=== PATIENT | female | born 1985 | race Caucasian/White ===

== ENCOUNTER 2017-09-09 12:11 | Inpatient (IN) | payer OTHER ==
[2017-09-09 12:21] VITALS: BMI 41.5
--- NOTE | 2017-09-09 12:58 | PDOC ---
History of Present Illness - General Chief Complaint: Vomiting/Diarrhea Stated Complaint: COLD SYMPTOMS Time Seen by Provider: 09/09/17 12:27 History Source: Patient Exam Limitations: No Limitations - History of Present Illness Initial Comments: CHIEF COMPLAINT: HISTORY OF PRESENT ILLNESS: Vital signs on arrival are notable for pulse of 106. REVIEW OF SYSTEMS: GENERAL/CONSTITUTIONAL: Subjective fever/chills. No weakness. No weight change. HEAD, EYES, EARS, NOSE AND THROAT: No change in vision. No ear pain or discharge. No sore throat. CARDIOVASCULAR: No chest pain or shortness of breath. RESPIRATORY: No cough, wheezing, or hemoptysis. GASTROINTESTINAL: See history of present illness. GENITOURINARY: No dysuria, frequency, or change in urination. MUSCULOSKELETAL: No joint or muscle swelling or pain. No neck or back pain. SKIN: No rash or easy bruising. NEUROLOGIC: No headache, vertigo, loss of consciousness, or loss of sensation. PHYSICAL EXAM: GENERAL: The patient is awake, alert, and fully oriented, in no acute distress. HEAD: Normal with no signs of trauma. ENT: Pupils equal, round and reactive to light, extraocular movements intact, sclera anicteric, conjunctiva clear. Neck supple. LUNGS: Clear to auscultation bilaterally. Normal excursion. No respiratory distress or use of accessory muscles. CV: RRR, S1/S2, no MRG. Cap refill < 2 sec. ABDOMEN: Soft, non-distended, non-tender even to deep palpation, no hepatomegaly or splenomegaly, no masses. EXTREMITIES: Normal range of motion, no edema. NEUROLOGICAL: Normal speech, normal gait. CN II-XII grossly intact. SKIN: Warm, dry, normal turgor, no rashes or lesions noted. Past History - Past Medical History Allergies/Adverse Reactions: Allergies Allergy/AdvReac Type Severity Reaction Status Date / Time cephalexin monohydrate Allergy Mild Rash Verified 03/20/15 17:33 [From Keflex] Penicillins Allergy Mild Rash Verified 03/20/15 17:33 Home Medications: Ambulatory Orders NK [No Known Home Medication] 09/09/17 Anemia: Yes Asthma: No Cancer: No Cardiac Disorders: No CVA: No COPD: No CHF: No DVT: No Dementia: No Diabetes: No GI Disorders: No Disorders: No HTN: No Hypercholesterolemia: No Liver Disease: No Seizures: No Thyroid Disease: No - Surgical History Abdominal Surgery: No Appendectomy: No Cardiac Surgery: No Cholecystectomy: No Lung Surgery: No Neurologic Surgery: No Orthopedic Surgery: No - Reproductive History (#): 0 Para: 0 Cervical CA: No Dysfunctional Uterine Bleeding: No Ectopic : No Endometrial CA: No Polycystic Ovaries: Yes Therapeutic (s) & number: No Tubal Ligation: No Spontaneous : 0 - Suicide/Smoking/Psychosocial Hx Smoking Status: Yes Smoking History: Never smoked Have you smoked in the past 12 months: Yes Number of Cigarettes Smoked Daily: 2 If you are a former smoker, when did you quit?: 2WKS Cigars Per Day: 0 Information on smoking cessation initiated: No 'Breaking Loose' booklet given: 03/20/15 Hx Alcohol Use: No Drug/Substance Use Hx: No Substance Use Type: None Hx Substance Use Treatment: No *Physical Exam - Vital Signs Last Vital Signs Temp Pulse Resp BP Pulse Ox 99.5 F 106 H 20 121/67 97 09/09/17 12:18 09/09/17 12:18 09/09/17 12:18 09/09/17 12:18 09/09/17 12:18 Medical Decision Making - Medical Decision Making A/P:
[2017-09-09] MEDS ORDERED: ACETAMINOPHEN 1000 MG/100 ML VIAL (NON FORMULARY) IVPB ONE (14:09)
[2017-09-09] MEDS ORDERED: ACETAMINOPHEN INJECTION 100 ML IVPB ONE (14:18)
[2017-09-09 14:21] LABS: BASO % 0.5 % (0-2.0); EOS % 0.1 % (0-4.5); HEMATOCRIT 37.7 % (32.4-45.2); MCHC 34.3 g/dl (32.0-36.0); MEAN CELL VOLUME 78.6 fl (80-96); MEAN PLT VOLUME 7.9 fl (7.5-11.1); MONO % 5.4 % (3.8-10.2); PLATELET COUNT 223 K/MM3 (134-434); RDW 15.4 % (11.6-15.6); WHITE BLOOD COUNT 10.3 K/mm3 (4.0-10.0)
[2017-09-09 14:32] LABS: URINE APPEARANCE CLEAR; URINE BILIRUBIN NEGATIVE (<2.0 mg/dL); URINE COLOR YELLOW; URINE GLUCOSE (UA) NEGATIVE (NEGATIVE); URINE KETONE NEGATIVE (NEGATIVE); URINE LEUK ESTERASE NEGATIVE (NEGATIVE); URINE NITRITE NEGATIVE (NEGATIVE); URINE PROTEIN NEGATIVE (NEGATIVE); URINE UROBILINOGEN NEGATIVE mg/dL (0.2-1.0)
[2017-09-09 14:36] LABS: EPI CELLS FEW /HPF (FEW); URINE MUCUS RARE
[2017-09-09 14:50] LABS: CHLORIDE 101 mmol/L (98-107); POTASSIUM 4.1 mmol/L (3.5-5.1); SODIUM 136 mmol/L (136-145)
[2017-09-09 14:57] LABS: ALBUMIN 3.9 g/dl (3.4-5.0); ALK PHOS 99 U/L (45-117); ANION GAP 9 (8-16); BILIRUBIN,TOTAL 0.6 mg/dL (0.2-1.0); BLOOD UREA NITROGEN 11 mg/dL (7-18); CALCIUM 8.7 mg/dL (8.5-10.1); CO2 26 mmol/L (21-32); CREATININE 0.9 mg/dL (0.55-1.02); GLUCOSE,RANDOM 103 mg/dL (74-106); LIPASE 56 U/L (73-393); SGOT/AST 24 U/L (15-37); SGPT/ALT 38 U/L (12-78)
--- NOTE | 2017-09-09 15:21 | PDOC ---
History of Present Illness - General Chief Complaint: Vomiting/Diarrhea Stated Complaint: COLD SYMPTOMS Time Seen by Provider: 09/09/17 12:27 - History of Present Illness Initial Comments: 09/09/17 15:18 31 year old with no past medical history who presents with one day of body aches , weakness, dizziness, chills/shaking, abdominal pain and nausea. She states the abdominal pain is rated 10/10 is intermittent. She also notes that she has had watery diarrhea since yesterday that is slimy but did not have blood. She reports that she felt so weak this morning that she was unable to dress herself. She took a Motrin this 0500 Am with moderate relief. She admits that she is sexually active without protection for the past 3 months. She denies chest pain, back pain, SOB, dysuria, burning or blood in urine. She has no other complaints at bedside. PMHX: none PSHX: none Meds: none Allergies: penicillin Tob: none Etoh: none Rec drugs: none Past History - Past Medical History Allergies/Adverse Reactions: Allergies Allergy/AdvReac Type Severity Reaction Status Date / Time cephalexin monohydrate Allergy Mild Rash Verified 09/12/17 00:00 [From Keflex] Penicillins Allergy Mild Rash Verified 09/12/17 00:00 Home Medications: Ambulatory Orders Oxycodone HCl/Acetaminophen [Percocet 5/325 -] 1 tab PO Q6H #40 tab MDD 5 Anemia: Yes Asthma: No Cancer: No Cardiac Disorders: No CVA: No COPD: No CHF: No DVT: No Dementia: No Diabetes: No GI Disorders: No Disorders: No HTN: No Hypercholesterolemia: No Liver Disease: No Seizures: No Thyroid Disease: No - Surgical History Abdominal Surgery: No Appendectomy: No Cardiac Surgery: No Cholecystectomy: No Lung Surgery: No Neurologic Surgery: No Orthopedic Surgery: No - Reproductive History (#): 0 Para: 0 Cervical CA: No Dysfunctional Uterine Bleeding: No Ectopic : No Endometrial CA: No Polycystic Ovaries: Yes Therapeutic (s) & number: No Tubal Ligation: No Spontaneous : 0 - Suicide/Smoking/Psychosocial Hx Smoking Status: Yes Smoking History: Former smoker Have you smoked in the past 12 months: Yes Number of Cigarettes Smoked Daily: 2 If you are a former smoker, when did you quit?: 2WKS Cigars Per Day: 0 Information on smoking cessation initiated: No 'Breaking Loose' booklet given: 03/20/15 Hx Alcohol Use: No Drug/Substance Use Hx: No Substance Use Type: None Hx Substance Use Treatment: No *Physical Exam - Vital Signs Last Vital Signs Temp Pulse Resp BP Pulse Ox 99.5 F 106 H 20 121/67 97 09/09/17 12:18 09/09/17 12:18 09/09/17 12:18 09/09/17 12:18 09/09/17 12:18 - Physical Exam Comments: 09/09/17 15:30 GENERAL: Awake, alert, and fully oriented, in no acute distress HEAD: No signs of trauma, normocephalic, atraumatic EYES: EOMI, sclera anicteric, conjunctiva clear ENT: Moist mucosa NECK: Normal ROM LUNGS: No distress, speaks full sentences, clear to auscultation bilaterally HEART: Regular rate and rhythm, normal S1 and S2, no murmurs, rubs or gallops, peripheral pulses normal and equal bilaterally. ABDOMEN: Soft, + RLQ and RUQ tenderness to palpation, normoactive bowel sounds. No guarding, no rebound. No masses EXTREMITIES : Normal inspection, Normal range of motion, no edema. No clubbing or cyanosis. NEUROLOGICAL: Normal speech, normal gait, no focal sensorimotor deficits SKIN: Warm, Dry, normal turgor, no rashes or lesions noted ED Treatment Course - LABORATORY CBC & Chemistry Diagram: 09/11/17 06:30 09/09/17 14:09 - ADDITIONAL ORDERS Additional order review: Laboratory Results 09/09/17 09/09/17 09/09/17 14:29 14:20 14:20 Sodium Potassium Chloride Carbon Dioxide Anion Gap BUN Creatinine Creat Clearance w eGFR Random Glucose Lactic Acid Calcium Total Bilirubin AST ALT Alkaline Phosphatase Total Protein Albumin Lipase Cancelled Urine Color Yellow Urine Appearance Clear Urine pH 8.0 D Ur Specific Erick 1.020 Urine Protein Negative Urine Glucose (UA) Negative Urine Ketones Negative Urine Blood 1+ H Urine Nitrite Negative Urine Bilirubin Negative Urine Urobilinogen Negative Ur Leukocyte Esterase Negative Urine WBC (Auto) 1 Urine RBC (Auto) 11 Ur Epithelial Cells Few Urine Mucus Rare Urine HCG, Qual Negative 09/09/17 09/09/17 14:09 14:09 Sodium 136 Potassium 4.1 Chloride 101 Carbon Dioxide 26 Anion Gap 9 BUN 11 Creatinine 0.9 Creat Clearance w eGFR > 60 Random Glucose 103 Lactic Acid 1.5 Calcium 8.7 Total Bilirubin 0.6 AST 24 ALT 38 Alkaline Phosphatase 99 Total Protein 8.0 Albumin 3.9 Lipase 56 L Urine Color Urine Appearance Urine pH Ur Specific Erick Urine Protein Urine Glucose (UA) Urine Ketones Urine Blood Urine Nitrite Urine Bilirubin Urine Urobilinogen Ur Leukocyte Esterase Urine WBC (Auto) Urine RBC (Auto) Ur Epithelial Cells Urine Mucus Urine HCG, Qual 09/09/17 14:20 Influenza Types A,B Antigen - Preliminary Nasopharyngeal Swab - Preliminary 09/09/17 14:09 RBC 4.80 MCV 78.6 L MCHC 34.3 RDW 15.4 MPV 7.9 Neutrophils % 82.0 Lymphocytes % 12.0 D Monocytes % 5.4 Eosinophils % 0.1 D Basophils % 0.5 - RADIOLOGY Radiology Studies Ordered: Category Date Time Status ABDOMEN & PELVIS CT W/O CONTR [CT] Stat CT Scan 09/09/17 14:45 Ordered - Medications Given in the ED: ED Medications Discontinued Medications Generic Name Dose Route Start Last Admin Trade Name Kamini PRN Reason Stop Dose Admin Acetaminophen 1,000 mg 09/09/17 14:09 09/09/17 14:28 Ofirmev Injection - IVPB 09/09/17 14:10 1,000 mg ONCE ONE Administration Medical Decision Making - Medical Decision Making 09/09/17 15:31 31 year old with no past medical history who presents with one day of body aches , weakness, dizziness, chills/shaking, abdominal pain and nausea. She states the abdominal pain is rated 10/10 is intermittent. She also notes that she has had watery diarrhea since yesterday that is slimy but did not have blood. Symptoms and history are concerning for gastroenteritis vs vs appendicitis vs UTI. - CBC, CMP, UA, Urine culture, Lipase, Upreg Labs - unremarkable Abd Ct - possible early acute appendicitis Surgery consulted. Patient agrees to appendectomy. *DC/Admit/Observation/Transfer Diagnosis at time of Disposition: Appendicitis Qualifiers: Appendicitis type: acute appendicitis Acute appendicitis type: with localized peritonitis Qualified Code(s): K35.3 - Acute appendicitis with localized peritonitis - Discharge Dispostion Condition at time of disposition: Guarded Decision to Admit order: Yes - Prescriptions - Referrals - Patient Instructions - Post Discharge Activity
--- NOTE | 2017-09-09 18:00 | PDOC ---
Attending Attestation - Resident Resident Name: JohnieDolores - ED Attending Attestation I have performed the following: I have examined & evaluated the patient, The case was reviewed & discussed with the resident, I agree w/resident's findings & plan, Exceptions are as noted - HPI HPI: 09/09/17 17:55 "The patient is a 31 year old female, with no significant PMH, who presents to the emergency department with weakness, generalized body aches, nausea without vomiting and diffuse intermittent abdominal pain beginning last night. The patient states the diffuse intermittent abdominal pain has been gradually progressive and is now 10/10 in intensity with no exacerbating or remitting factors. It is most pronounced on the R side of her abdomen. The patient states she took Motrin around 5am this morning with minimal relief. The patient also endorses a few episodes of loose stool diarrhea (non bloody) yesterday. The patient denies chest pain, shortness of breath, headache and dizziness. Denies fever, chills, vomit and constipation. Denies dysuria, frequency, urgency and hematuria. Allergies: cephalexin monohydrate, penicillins " - Physicial Exam PE: 09/09/17 17:58 "GENERAL: Awake, alert, and fully oriented, in no acute distress. HEAD: No signs of trauma EYES: PERRLA, EOMI, sclera anicteric, conjunctiva clear ENT: Auricles normal inspection, hearing grossly normal, nares patent, oropharynx clear without exudates. Moist mucosa NECK: Nontender, no stepoffs, Normal ROM, supple, no lymphadenopathy, JVD, or masses LUNGS: Breath sounds equal, clear to auscultation bilaterally. No wheezes, and no crackles HEART: Regular rate and rhythm, normal S1 and S2, no murmurs, rubs or gallops ABDOMEN: + R side abdominal tenderness, normoactive bowel sounds. No guarding, no rebound. No masses EXTREMITIES: Normal range of motion, no edema. No clubbing or cyanosis. No cords, erythema, or tenderness NEUROLOGICAL: Cranial nerves II through XII intact. 5/5 strength and sensation in all extremities, Normal speech, normal gait, normal cerebellar function SKIN: Warm, Dry, normal turgor, no rashes or lesions noted. " - Medical Decision Making 09/09/17 17:58 31 F with abdominal pain, found to be tender on R side. Likely gastroenteritis but will need to r/o appy. Pt with negative barclay's, making stephan less likely. - Labs, UA, UPT - CTAP - IVF, pain control 09/09/17 18:12 CT shows possible early appy. Dr. Arreola at bedside to evaluate. Will likely take to OR. Pt admitted to Dr. Arreola as satellite. <Ben Mcneil - Last Filed: 09/09/17 18:12> Attestations - Attestations 09/09/17 18:19 Documentation prepared by Mark Anthony Ríos, acting as medical administrator for Ben Mcneil MD. <Mark Anthony Ríos - Last Filed: 09/09/17 18:19>
--- NOTE | 2017-09-09 18:01 | HP ---
Admitting History and Physical - Admission Chief Complaint: Abdominal pain History of Present Illness: 31yo female PMH obesity s/p 3 years ago presents with one day of body aches, weakness, dizziness, chills/shaking, abdominal pain and nausea. She states the abdominal pain is rated 10/10 is intermittent. She also notes that she has had watery diarrhea since yesterday. She reports that she felt so weak this morning. She admits that she is sexually active without protection for the past 3 months. She denies chest pain, back pain, SOB, dysuria, burning or blood in urine. She has no other complaints at bedside. CT scan shows some proximal appendiceal thickening. Last meal 450P asked to stop. We were asked to assess. History Source: Patient, Medical Record Limitations to Obtaining History: No Limitations - Past Medical History ...LMP: 01/07/12 Additional Past Medical History: obesity - Past Surgical History Past Surgical History: Yes: - Smoking History Smoking history: Former smoker Have you smoked in the past 12 months: Yes Aproximately how many cigarettes per day: 2 If you are a former smoker, when did you quit?: 2WKS - Alcohol/Substance Use Hx Alcohol Use: No History of Substance Use: reports: None - Social History ADL: Independent History of Recent Travel: No Home Medications - Allergies Allergies/Adverse Reactions: Allergies Allergy/AdvReac Type Severity Reaction Status Date / Time cephalexin monohydrate Allergy Mild Rash Verified 03/20/15 17:33 [From Keflex] Penicillins Allergy Mild Rash Verified 03/20/15 17:33 - Home Medications Home Medications: Ambulatory Orders NK [No Known Home Medication] 09/09/17 Review of Systems - Review of Systems Constitutional: reports: Malaise. denies: Chills, Fever Eyes: denies: Blind Spots, Recent Change in Vision HENT: denies: Difficult Swallowing, Throat Pain Neck: denies: Swollen Glands, Tenderness Cardiovascular: denies: Chest Pain, Palpitations Respiratory: denies: Cough, SOB Gastrointestinal: reports: Abdominal Pain, Bloating, Diarrhea, Vomiting Genitourinary: denies: Flank Pain Breasts: reports: No Symptoms Reported. denies: Pain Integumentary: denies: Erythema, Incision, Lesions, Rash Neurological: denies: Seizure, Syncope Endocrine: denies: Unexplained Weight Gain, Unexplained Weight Loss Hematology/Lymphatic: denies: Easily Bruised, Excessive Bleeding Psychiatric: denies: Anxiety, Depression Physical Examination Vital Signs: Vital Signs Temperature 98.2 F 09/09/17 16:34 Pulse Rate 85 09/09/17 16:34 Respiratory Rate 18 09/09/17 16:34 Blood Pressure 118/62 09/09/17 16:34 O2 Sat by Pulse Oximetry (%) 100 09/09/17 16:34 Constitutional: Yes: Well Nourished, No Distress, Calm, Obese Eyes: Yes: Conjunctiva Clear, EOM Intact HENT: Yes: Atraumatic, Normocephalic Neck: Yes: Supple, Trachea Midline Cardiovascular: Yes: Regular Rate and Rhythm, S1, S2 Respiratory: Yes: Regular, CTA Bilaterally Gastrointestinal: Yes: Normal Bowel Sounds, Soft, Abdomen, Obese, Tenderness ( mild in the RLQ,), Tenderness, Rebound. No: Tenderness, Epigastrium ...Rectal Exam: Yes: Deferred Renal/: No: CVA Tenderness - Left, CVA Tenderness - Right Musculoskeletal: No: Muscle Pain, Muscle Weakness Extremities: Yes: Cool, Cyanosis Edema: Yes Peripheral Pulses WNL: No Peripheral Pulses: Left Radial: 2+, Right Radial: 2+, Left Doralis Pedis: 2+, Right Dorsalis Pedis: 2+ Neurological: Yes: Alert, Oriented Psychiatric: Yes: Alert, Oriented Labs: CBC, BMP 09/09/17 14:09 09/09/17 14:09 Imaging - Results Cat Scan: Report Reviewed, Image Reviewed (proximal dilation of appendix at the cecum) Problem List - Problems (1) Appendicitis Assessment/Plan: 31yo Female with acute appendicitis NPO and IVF hydration IV antibiotics Discussed with patient risks, benefits and alternatives of laparoscopic possible open appendectomy, including but not limited to bleeding, infection, injury to adjacent structures, leak or injury, intraabdominal abscess, need for further procedures, ; alternatives include antibiotics, delayed or no surgery - risks of this include failure of nonoperative therapy, perforation, sepsis, recurrence, . Patient desires to proceed with operation - will take to OR for above. Informed consent signed for same. Code(s): K37 - UNSPECIFIED APPENDICITIS Qualifiers: Appendicitis type: acute appendicitis Acute appendicitis type: with localized peritonitis Qualified Code(s): K35.3 - Acute appendicitis with localized peritonitis (2) Abdominal pain in female Code(s): R10.9 - UNSPECIFIED ABDOMINAL PAIN (3) Asthmatic bronchitis Code(s): J45.909 - UNSPECIFIED ASTHMA, UNCOMPLICATED Qualifiers: Asthma severity: unspecified severity Asthma complication type: uncomplicated Qualified Code(s): J45.909 - Unspecified asthma, uncomplicated (4) Cough Code(s): R05 - COUGH (5) Scabies Code(s): B86 - SCABIES
--- NOTE | 2017-09-09 18:09 | CON.ID ---
Consult Consult Specialty:: infectious diseases Referred by:: Reason for Consultation:: fever,appendicitis - History of Present Illness Chief Complaint: abd pain,dirrhoea History of Present Illness: 31yo female PMH obesity s/p 3 years ago presents with one day of body aches, weakness, dizziness, chills/shaking, abdominal pain and nausea.She is also c/o of dirrhoea patient mentions that she has been having pain for couple of days and the pain increased and the dirrhoea became very watery patient came to the hospital and found to have appendicits on the ct scan surgery saw the patient and is planning to take the patient to the operating room tomorrow otherwise patient is ok - History Source History Provided By: Patient, Medical Record Limitations to Obtaining History: No Limitations - Past Medical History ...LMP: 01/07/12 - Alcohol/Substance Use Hx Alcohol Use: No - Smoking History Smoking history: Former smoker Have you smoked in the past 12 months: Yes Aproximately how many cigarettes per day: 2 If you are a former smoker, when did you quit?: 2WKS Home Medications - Allergies Allergies/Adverse Reactions: Allergies Allergy/AdvReac Type Severity Reaction Status Date / Time cephalexin monohydrate Allergy Mild Rash Verified 03/20/15 17:33 [From Keflex] Penicillins Allergy Mild Rash Verified 03/20/15 17:33 - Home Medications Home Medications: Ambulatory Orders NK [No Known Home Medication] 09/09/17 Review of Systems - Review of Systems Constitutional: reports: Fever Eyes: reports: No Symptoms HENT: reports: No Symptoms Cardiovascular: reports: No Symptoms Respiratory: reports: No Symptoms Gastrointestinal: reports: Abdominal Pain, Diarrhea Musculoskeletal: reports: No Symptoms Integumentary: reports: No Symptoms Neurological: reports: No Symptoms Endocrine: reports: No Symptoms Hematology/Lymphatic: reports: No Symptoms Psychiatric: reports: No Symptoms Physical Exam Vital Signs: Vital Signs Temperature 98.2 F 09/09/17 16:34 Pulse Rate 85 09/09/17 16:34 Respiratory Rate 18 09/09/17 16:34 Blood Pressure 118/62 09/09/17 16:34 O2 Sat by Pulse Oximetry (%) 100 09/09/17 16:34 Constitutional: Yes: Well Nourished, Calm, Mild Distress, Obese Cardiovascular: Yes: Regular Rate and Rhythm Respiratory: Yes: Regular, CTA Bilaterally Gastrointestinal: Yes: Soft, Hypoactive Bowel Sounds, Tenderness Musculoskeletal: Yes: WNL Extremities: Yes: WNL Neurological: Yes: Alert, Oriented Psychiatric: Yes: Alert, Oriented Labs: CBC, BMP 09/09/17 14:09 09/09/17 14:09 Imaging - Results Cat Scan: Report Reviewed, Image Reviewed Assessment/Plan Problem List - Problems (1) Appendicitis Code(s): K37 - UNSPECIFIED APPENDICITIS Qualifiers: Appendicitis type: acute appendicitis Acute appendicitis type: with localized peritonitis Qualified Code(s): K35.3 - Acute appendicitis with localized peritonitis (2) Abdominal pain in female Code(s): R10.9 - UNSPECIFIED ABDOMINAL PAIN (3) Asthmatic bronchitis Code(s): J45.909 - UNSPECIFIED ASTHMA, UNCOMPLICATED Qualifiers: Asthma severity: unspecified severity Asthma complication type: uncomplicated Qualified Code(s): J45.909 - Unspecified asthma, uncomplicated (4) Cough Code(s): R05 - COUGH (5) Scabies Code(s): B86 - SCABIES 6 dirrhoea patient with allergy to pcn plan brewer start patient on iv abx appendectomy tomorrow if patient continues to have dirrhoea post appendectomy will work it up rest continue current mgmt
[2017-09-09] MEDS ORDERED: ONDANSETRON 4 MG/2 ML VIAL ONE (18:21)
[2017-09-09] MEDS ORDERED: morphine SULFATE 4 MG/ML VIAL ONE (18:21)
[2017-09-09] MEDS: MORPHINE SULFATE 2 MG/ML VIAL IVPUSH PRN ×2 (18:43→23:32)
[2017-09-09] MEDS: ONDANSETRON 4 MG/2 ML VIAL IVPUSH SCH ×2 (18:44→23:36)
[2017-09-09] MEDS: LACTATED RINGERS SOLUTION 1,000 ML IV SCH (18:44)
[2017-09-09 19:06] LABS: INR 1.38 (0.82-1.09); PROTHROMBIN TIME (PATIENT) 15.6 SEC (9.7-13.0)
[2017-09-09 19:09] LABS: ACTIVATED PTT 27.2 SECONDS (25.2-36.5)
[2017-09-09] MEDS: MEROPENEM 1 GM in DEXTROSE 5%-WATER 100 ML IVPB SCH (20:19)
[2017-09-09] MEDS ORDERED: ACETAMINOPHEN 325 MG TABLET (FP) PO PRN (23:34)
[2017-09-09] MEDS: HEPARIN NA (PORCINE) 5,000 UNITS/ML 1ML VIAL SQ SCH (23:37)
[2017-09-10] MEDS: LACTATED RINGERS SOLUTION 1,000 ML IV SCH ×2 (00:01→13:00)
[2017-09-10] MEDS: MEROPENEM 1 GM in DEXTROSE 5%-WATER 100 ML IVPB SCH ×3 (02:35→18:13)
[2017-09-10] MEDS: ONDANSETRON 4 MG/2 ML VIAL IVPUSH SCH ×2 (05:58→18:13)
[2017-09-10] MEDS: MORPHINE SULFATE 2 MG/ML VIAL IVPUSH PRN ×3 (05:58→18:33)
[2017-09-10 07:30] LABS: BASO % 0.5 % (0-2.0); HEMATOCRIT 36.6 % (32.4-45.2); HEMOGLOBIN 12.5 GM/dL (10.7-15.3); LYMPH % 10.2 % (8-40); MCH 26.8 pg (25.7-33.7); MCHC 34.1 g/dl (32.0-36.0); MEAN CELL VOLUME 78.5 fl (80-96); MEAN PLT VOLUME 8.1 fl (7.5-11.1); MONO % 5.5 % (3.8-10.2); NEUT % 83.8 % (42.8-82.8); PLATELET COUNT 196 K/MM3 (134-434); RBC 4.67 M/mm3 (3.60-5.2); RDW 15.8 % (11.6-15.6); WHITE BLOOD COUNT 9.6 K/mm3 (4.0-10.0)
[2017-09-10] MEDS ORDERED: PT OWN MED DRAWER 7, Y5N ONE ×5 (08:47→21:27)
[2017-09-10] MEDS: HEPARIN NA (PORCINE) 5,000 UNITS/ML 1ML VIAL SQ SCH ×2 (09:54→21:52)
--- NOTE | 2017-09-10 10:38 | PN ---
Progress Note, Physician History of Present Illness: spiked fevers last night going to the operating room still with dirrhoea family in the room d/w the father - Current Medication List Current Medications: Active Medications Acetaminophen (Tylenol -) 650 mg PO Q6H PRN PRN Reason: PAIN LEVEL 1-5 Last Admin: 09/10/17 06:26 Dose: 650 mg Heparin Sodium (Porcine) (Heparin -) 5,000 unit SQ BID TWAN Last Admin: 09/10/17 09:54 Dose: Not Given Lactated Ringer's (Lactated Ringers Solution) 1,000 mls @ 125 mls/hr IV ASDIR TWAN Last Admin: 09/10/17 00:01 Dose: 125 mls/hr Meropenem 1 gm/ Dextrose 100 mls @ 200 mls/hr IVPB Q8H-IV TWAN Last Admin: 09/10/17 09:21 Dose: 200 mls/hr Morphine Sulfate (Morphine Sulfate) 4 mg IVPUSH Q4H PRN PRN Reason: PAIN LEVEL 7 - 10 Last Admin: 09/10/17 09:59 Dose: 4 mg Ondansetron HCl (Zofran Injection) 4 mg IVPUSH Q6H TWAN Last Admin: 09/10/17 05:58 Dose: 4 mg - Objective Vital Signs: Vital Signs Temperature 100.6 F H 09/10/17 06:50 Pulse Rate 113 H 09/10/17 06:50 Respiratory Rate 18 09/10/17 06:50 Blood Pressure 112/45 09/10/17 06:50 O2 Sat by Pulse Oximetry (%) 98 09/10/17 04:00 Constitutional: Yes: No Distress, Calm HENT: Yes: Atraumatic, Normocephalic Cardiovascular: Yes: Regular Rate and Rhythm Respiratory: Yes: Regular, CTA Bilaterally Musculoskeletal: Yes: WNL Extremities: Yes: WNL Neurological: Yes: Alert, Oriented Psychiatric: Yes: Alert, Oriented Labs: CBC, BMP 09/10/17 06:18 09/09/17 14:09 INR, PTT INR 1.38 (0.82-1.09) H D 09/09/17 18:30 Assessment/Plan Problem List - Problems (1) Appendicitis Code(s): K37 - UNSPECIFIED APPENDICITIS Qualifiers: Appendicitis type: acute appendicitis Acute appendicitis type: with localized peritonitis Qualified Code(s): K35.3 - Acute appendicitis with localized peritonitis (2) Abdominal pain in female Code(s): R10.9 - UNSPECIFIED ABDOMINAL PAIN (3) Asthmatic bronchitis Code(s): J45.909 - UNSPECIFIED ASTHMA, UNCOMPLICATED Qualifiers: Asthma severity: unspecified severity Asthma complication type: uncomplicated Qualified Code(s): J45.909 - Unspecified asthma, uncomplicated (4) Cough Code(s): R05 - COUGH (5) Scabies Code(s): B86 - SCABIES 6 dirrhoea patient with allergy to pcn plan continue iv abx appendectomy today rest continue current mgmt will see if patient has dirrhoea post surgery
[2017-09-10] MEDS ORDERED: MEROPENEM 1 GM VIAL (RESTRICTED TO ID) IVPB ONE (11:00)
[2017-09-10] MEDS ORDERED: ROCURONIUM BROMIDE 50 MG/5 ML VIAL ONE (11:09)
[2017-09-10] MEDS ORDERED: fentaNYL CITRATE 250 MCG/5 ML VIAL ONE (11:09)
[2017-09-10] MEDS ORDERED: PROPOFOL 20 ML ONE ×2 (11:09)
[2017-09-10] MEDS ORDERED: SUCCINYLCHOLINE CHLORIDE 200 MG/10 ML VIAL ONE (11:10)
[2017-09-10] MEDS ORDERED: MIDAZOLAM HCL 2 MG/2 ML SINGLE DOSE VIAL ONE (11:10)
--- NOTE | 2017-09-10 11:34 | EKG ---
Test Reason : Blood Pressure : / mmHG Vent. Rate : 103 BPM Atrial Rate : 103 BPM P-R Int : 126 ms QRS Dur : 096 ms QT Int : 340 ms P-R-T Axes : 032 -25 015 degrees QTc Int : 445 ms POOR DATA QUALITY, INTERPRETATION MAY BE ADVERSELY AFFECTED SINUS TACHYCARDIA INCOMPLETE RIGHT BUNDLE BRANCH BLOCK BORDERLINE ECG WHEN COMPARED WITH ECG OF 13-JAN-2012 20:41, NO SIGNIFICANT CHANGE WAS FOUND Confirmed by DENVER PARRA, SRIDHAR ([id number]) on 09/10/2017 11:33:47 AM Referred By: Confirmed By:SRIDHAR GOFF MD
[2017-09-10] MEDS ORDERED: NEOSTIGMINE METHYLSULFATE 0.5 MG/ML - 10 ML MDV ONE (12:25)
[2017-09-10] MEDS ORDERED: BUPIVACAINE HCL/PF (5 MG/ML) 30 ML VIAL IJ ONE (12:33)
[2017-09-10] MEDS ORDERED: ONDANSETRON 4 MG/2 ML VIAL IVPUSH PRN (12:48)
--- NOTE | 2017-09-10 12:58 | OP ---
Operative Note - Note: Operative Date: 09/10/17 Pre-Operative Diagnosis: acute appendicitis Operation: Laparoscopic appendectomy Findings: inflamed appendix non-ruptured the purulent peel. Post-Operative Diagnosis: Same as Pre-op Surgeon: Jose Alberto Arreola Anesthesiologist/BUCKET HOOKER: Vianey Rosenthal Anesthesia: General, Local (20ml Marcaine 0.5%) Specimens Removed: appendix Estimated Blood Loss (mls): 10 Drains & Tubes with Location: 200 garcia (discontinued post op) Fluid Volume Replaced (mls): 900 (crystalloid ) Operative Report Dictated: Yes
[2017-09-10] MEDS ORDERED: LACTATED RINGERS SOLUTION 1,000 ML IV SCH (13:00)
[2017-09-10] MEDS ORDERED: ACETAMINOPHEN INJECTION 100 ML IVPB ONE (13:26)
[2017-09-10] MEDS ORDERED: ACETAMINOPHEN 1000 MG/100 ML VIAL (NON FORMULARY) IVPB ONE (13:41)
[2017-09-10] MEDS ORDERED: ACETAMINOPHEN 325 MG TABLET (FP) PO PRN (14:03)
--- NOTE | 2017-09-10 18:58 | OP ---
DATE OF OPERATION: 09/10/2017 PREOPERATIVE DIAGNOSIS: Acute appendicitis. POSTOPERATIVE DIAGNOSIS: Acute appendicitis. PROCEDURE: Laparoscopic appendectomy. ATTENDING SURGEON: Jose Alberto Arreola MD WRISTER: No one. ANESTHESIOLOGIST: Vianey Rosenthal MD ANESTHESIA TYPE: General with local. Local consisted of 0.5% Marcaine. A total of 20 mL given in an area block fashion at the port sites. SPECIMEN: Appendix. ESTIMATED BLOOD LOSS: 10 mL DRAIN: Kamara which was removed postoperatively. INTRAVENOUS FLUID ADMINISTERED: Crystalloid 900 mL. BRIEF FINDINGS: Patient had an inflamed and non-ruptured appendix with purulent peel, which was removed in its entirety in an Endo Catch bag. Counts were correct at the conclusion of surgery. INDICATION: Patient is a 31-year-old female with past medical history of morbid obesity and history of abdominal pain for 3 days, worsening, fevers last night, and leukocytosis. She was counseled regarding risks, benefits, and alternatives of surgical appendectomy; signed informed consent, was taken for the procedure. DESCRIPTION OF PROCEDURE: Patient was brought to the operating room, placed in supine position on the operating table with left arm tucked and the right arm extended at 90 degrees perpendicular to the body's axis in the midline. Lower extremities had SCDs placed to compression. Patient was induced with general anesthesia, endotracheally intubated. She received intravenous antibiotics at 11 a.m., meropenem, prior to surgery. Anterior abdominal wall was clipped, prepped, and draped in standard surgical fashion. We began first with an infraumbilical incision. It was incised with a 15-blade scalpel, deepened and widened through the subcutaneous tissue. Fat was retracted to expose the midline raphe of the rectus muscles. It was identified and divided with Bovie cautery, then clamped and elevated away from the posterior abdomen. A blunt entry was then made into the abdominal cavity, and a pneumoperitoneum was established to 15 mmHg with a 12-mm Mychal. We proceeded then with additional port placement, a 5-mm port in the suprapubic area and in the left lower quadrant. With this, the patient was positioned into Trendelenburg with slight left lateral decubitus, which facilitated retraction of the small intestines and omentum away from the cecum. The cecum was identified and followed with its tenia to its base. The appendix was identified, and then, the base itself was dissected using a [place] dissector. We proceeded then with transecting the base of the appendix with an Endo CARI stapler, a purple load size 60 mm. This was completed. At which point, the appendix was grasped, and then, the remainder of the dissection was carried through with the endoscopic LigaSure device which was used to transect the mesoappendix and remaining attachments to the right lateral abdomen on the sidewall. The appendix was transected in its entirety. There did not appear to be any rupture. There was a small amount of purulent peel which was suctioned from the abdomen. No irrigation was completed. The specimen was retrieved from the umbilical port using a 10-mm Endo Catch bag. The remainder of the abdomen was then re-inspected, and the pneumoperitoneum relieved. The appendix was passed off the field for examination and final pathologic diagnosis. The port site at the infraumbilical position, the Mychal, was ablated using a [id number] 0 Vicryl in interrupted fashion, followed by closure of the skin using 4-0 Monocryl with a subcuticular closure at the umbilicus, and then, the remaining 5-mm port sites were closed with a single interrupted stitch. The skin was cleaned. Sterile dressings were placed, benzoin and Steri-Strips, gauze pads, and Tegaderms. The patient was awoken from general anesthesia, having tolerated the procedure well. MD EMERALD Luna/[id number]
[2017-09-11] MEDS: MORPHINE SULFATE 2 MG/ML VIAL IVPUSH PRN ×3 (00:01→14:29)
[2017-09-11] MEDS: ONDANSETRON 4 MG/2 ML VIAL IVPUSH SCH ×3 (00:02→15:23)
[2017-09-11] MEDS: LACTATED RINGERS SOLUTION 1,000 ML IV SCH ×3 (00:04→15:23)
[2017-09-11] MEDS: MEROPENEM 1 GM in DEXTROSE 5%-WATER 100 ML IVPB SCH ×2 (01:21→10:37)
--- NOTE | 2017-09-11 05:18 | PN ---
Progress Note, Physician Chief Complaint: abdominal pain History of Present Illness: She is hemoynamically stable post operatively. voiding and tolerating diet. no complaints - Current Medication List Current Medications: Active Medications Acetaminophen (Tylenol -) 650 mg PO Q6H PRN PRN Reason: PAIN LEVEL 1-5 Heparin Sodium (Porcine) (Heparin -) 5,000 unit SQ BID TWAN Last Admin: 09/10/17 21:52 Dose: 5,000 unit Lactated Ringer's (Lactated Ringers Solution) 1,000 mls @ 125 mls/hr IV ASDIR TWAN Last Admin: 09/11/17 00:04 Dose: 125 mls/hr Meropenem 1 gm/ Dextrose 100 mls @ 200 mls/hr IVPB Q8H-IV TWAN Last Admin: 09/11/17 01:21 Dose: 200 mls/hr Morphine Sulfate (Morphine Sulfate) 4 mg IVPUSH Q4H PRN PRN Reason: PAIN LEVEL 7 - 10 Last Admin: 09/11/17 00:01 Dose: 4 mg Ondansetron HCl (Zofran Injection) 4 mg IVPUSH Q6H [facility] Last Admin: 09/11/17 00:02 Dose: 4 mg - Objective Vital Signs: Vital Signs Temperature 98.2 F 09/10/17 22:00 Pulse Rate 100 H 09/10/17 22:00 Respiratory Rate 18 09/10/17 22:00 Blood Pressure 106/73 09/10/17 22:00 O2 Sat by Pulse Oximetry (%) 95 09/10/17 22:00 Vital Signs Period Temp Pulse Resp BP Sys/Barney Pulse Ox Last 24 Hr 98 F-100.6 F 70-113 16-20 100-1116/45-77 95-100 Labs: CBC, BMP 09/10/17 06:18 09/09/17 14:09 INR, PTT INR 1.38 (0.82-1.09) H D 09/09/17 18:30 Problem List - Problems (1) Appendicitis Assessment/Plan: 31yo Female with acute appendicitis POD#1 s/p Lap appendectomy Regular diet Code(s): K37 - UNSPECIFIED APPENDICITIS Qualifiers: Appendicitis type: acute appendicitis Acute appendicitis type: with localized peritonitis Qualified Code(s): K35.3 - Acute appendicitis with localized peritonitis (2) Abdominal pain in female Code(s): R10.9 - UNSPECIFIED ABDOMINAL PAIN (3) Asthmatic bronchitis Code(s): J45.909 - UNSPECIFIED ASTHMA, UNCOMPLICATED Qualifiers: Asthma severity: unspecified severity Asthma complication type: uncomplicated Qualified Code(s): J45.909 - Unspecified asthma, uncomplicated (4) Cough Code(s): R05 - COUGH (5) Scabies Code(s): B86 - SCABIES
--- NOTE | 2017-09-11 05:42 | DS ---
Physical Examination Vital Signs: Vital Signs Temperature 98.2 F 09/10/17 22:00 Pulse Rate 100 H 09/10/17 22:00 Respiratory Rate 18 09/10/17 22:00 Blood Pressure 106/73 09/10/17 22:00 O2 Sat by Pulse Oximetry (%) 95 09/10/17 22:00 Vital Signs Period Temp Pulse Resp BP Sys/Barney Pulse Ox Last 24 Hr 98 F-100.6 F 70-113 16-20 100-1116/45-77 95-100 Findings/Remarks: She is hemoynamically stable post operatively. voiding and tolerating diet. no complaints Constitutional: Yes: Well Nourished, No Distress, Calm, Obese Eyes: Yes: Conjunctiva Clear, EOM Intact HENT: Yes: Atraumatic, Normocephalic Neck: Yes: Supple, Trachea Midline Cardiovascular: Yes: Regular Rate and Rhythm, S1, S2 Respiratory: Yes: Regular, CTA Bilaterally Gastrointestinal: Yes: Normal Bowel Sounds, Soft, Abdomen, Obese, Tenderness ...Rectal Exam: No: Deferred Renal/: No: CVA Tenderness - Left, CVA Tenderness - Right Extremities: No: Cool, Cyanosis Edema: No Peripheral Pulses WNL: Yes Peripheral Pulses: Left Radial: 2+, Right Radial: 2+, Left Doralis Pedis: 2+, Right Dorsalis Pedis: 2+ Wound/Incision: Yes: Clean/Dry, Well Approximated, Open to air, Dressing Dry and Intact Neurological: Yes: Alert, Oriented Psychiatric: Yes: Alert, Oriented Labs: CBC, BMP 09/10/17 06:18 09/09/17 14:09 Discharge Summary Reason For Visit: APPENDICITIS Current Active Problems Abdominal pain in female (Acute) Appendicitis (Acute) Procedures: Principal: laparoscopic appendectomy Hospital Course: admitted for an urgent procedure. uneventful surgery. stable post operatively for discharge home. Time spent reviewing chart, examining patient, talking with providers and/or family and documentation is 35 minutes Condition: Improved - Instructions Diet, Activity, Other Instructions: Postoperative instructions: You had a laparoscopic appendectomy on 09/10/[address] Jose Alberto Arreola of [facility]. Activity: Resume your usual activities gradually, but no heavy exertion or lifting more than 10-15 pounds for 1 month. Remove dressings 48 hours after surgery; sticky tapes underneath will fall off by themselves. You may shower daily starting then, just pat the incision areas dry. Eat lightly at first, but advance to your usual diet as tolerated. Pain: For pain, you may use and alternate Tylenol (acetaminophen) and/or ibuprofen every 6 hours each as needed; this means that you can take one OR the other at 3-hour intervals. If you are prescribed a Tylenol/narcotic combination for severe pain, use it instead of plain Tylenol as needed and switch back when your pain starts decreasing. Do not take more than 4000mg of acetaminophen in a day. Take medications as prescribed or indicated on the labeling. Follow-up: Call Dr. Arreola' office at [phone] to make your postop appointment (Wednesday ~2 weeks after surgery). Clinic is held in the [facility] on the first floor of [facility]. Call the office if you have: * increasing pain not responsive to pain medication * fever of 101F or higher * vomiting * unusual or increasing bleeding or drainage from wounds * increasing redness or swelling at wound sites * inability to urinate Also, see your primary medical doctor within 1-2 weeks. Disposition: HOME - Home Medications Comprehensive Discharge Medication List: Ambulatory Orders Oxycodone HCl/Acetaminophen [Percocet 5/325 -] 1 tab PO Q6H #40 tab MDD 5
[2017-09-11 06:59] LABS: BASO % 0.2 % (0-2.0); HEMATOCRIT 32.9 % (32.4-45.2); HEMOGLOBIN 11.3 GM/dL (10.7-15.3); MCH 26.9 pg (25.7-33.7); MCHC 34.3 g/dl (32.0-36.0); MEAN CELL VOLUME 78.4 fl (80-96); MONO % 6.4 % (3.8-10.2); NEUT % 80.4 % (42.8-82.8); PLATELET COUNT 201 K/MM3 (134-434); RDW 15.3 % (11.6-15.6); WHITE BLOOD COUNT 9.1 K/mm3 (4.0-10.0)
[2017-09-11 07:01] VITALS: PULSE 87
[2017-09-11] MEDS: HEPARIN NA (PORCINE) 5,000 UNITS/ML 1ML VIAL SQ SCH (10:36)
[2017-09-11 13:12] VITALS: BP 114/61; TEMP 98.6
--- NOTE | 2017-09-11 15:07 | PN ---
Progress Note, Physician History of Present Illness: patient doing well says abd pain is less - Current Medication List Current Medications: Active Medications Acetaminophen (Tylenol -) 650 mg PO Q6H PRN PRN Reason: PAIN LEVEL 1-5 Heparin Sodium (Porcine) (Heparin -) 5,000 unit SQ BID [facility] Last Admin: 09/11/17 10:36 Dose: 5,000 unit Lactated Ringer's (Lactated Ringers Solution) 1,000 mls @ 125 mls/hr IV ASDIR TWAN Last Admin: 09/11/17 10:37 Dose: 125 mls/hr Meropenem 1 gm/ Dextrose 100 mls @ 200 mls/hr IVPB Q8H-IV TWAN Last Admin: 09/11/17 10:37 Dose: 200 mls/hr Morphine Sulfate (Morphine Sulfate) 4 mg IVPUSH Q4H PRN PRN Reason: PAIN LEVEL 7 - 10 Last Admin: 09/11/17 14:29 Dose: 4 mg Ondansetron HCl (Zofran Injection) 4 mg IVPUSH Q6H [facility] Last Admin: 09/11/17 07:00 Dose: 4 mg - Objective Vital Signs: Vital Signs Temperature 98.6 F 09/11/17 11:00 Pulse Rate 87 09/11/17 11:00 Respiratory Rate 18 09/11/17 11:00 Blood Pressure 114/61 09/11/17 11:00 O2 Sat by Pulse Oximetry (%) 96 09/11/17 09:00 Constitutional: Yes: No Distress, Calm, Obese Cardiovascular: Yes: Regular Rate and Rhythm Respiratory: Yes: Regular Gastrointestinal: Yes: Soft, Hypoactive Bowel Sounds Musculoskeletal: Yes: WNL Extremities: Yes: WNL Wound/Incision: Yes: Clean/Dry Neurological: Yes: Alert, Oriented Psychiatric: Yes: Alert, Oriented Labs: CBC, BMP 09/11/17 06:30 09/09/17 14:09 INR, PTT INR 1.38 (0.82-1.09) H D 09/09/17 18:30 Assessment/Plan Problem List - Problems (1) Appendicitis Code(s): K37 - UNSPECIFIED APPENDICITIS Qualifiers: Appendicitis type: acute appendicitis Acute appendicitis type: with localized peritonitis Qualified Code(s): K35.3 - Acute appendicitis with localized peritonitis (2) Abdominal pain in female Code(s): R10.9 - UNSPECIFIED ABDOMINAL PAIN (3) Asthmatic bronchitis Code(s): J45.909 - UNSPECIFIED ASTHMA, UNCOMPLICATED Qualifiers: Asthma severity: unspecified severity Asthma complication type: uncomplicated Qualified Code(s): J45.909 - Unspecified asthma, uncomplicated (4) Cough Code(s): R05 - COUGH (5) Scabies Code(s): B86 - SCABIES 6 dirrhoea patient with allergy to pcn plan stable tolerating diet can switch to oral abx rest as per the team
--- NOTE | 2017-09-13 12:42 | PATH ---
Surgical Pathology Report Patient Name: DOROTHY HOUSTON Med. Rec. #: [id number] /Age/Gender: 1985 (Age: 31) / F Account: [id number] Location: [facility] MED/SURG Taken: 09/10/2017 Received: 09/10/2017 Reported: 09/13/2017 Physicians: Jose Alberto Arreola M.D. Specimen(s) Received APPENDIX Clinical History Appendicitis Final Diagnosis APPENDIX, LAPAROSCOPIC APPENDECTOMY: ACUTE APPENDICITIS. Electronically Signed Lidia Otoole M.D. Gross Description Received in formalin, labeled "appendix," is a 5 cm. in length vermiform appendix with a stapled margin of resection and moderate attached fat. The serosa is lerma-pink and smooth. Sectioning reveals blood within the lumen. The wall of the appendix averages 0.1 cm. in thickness. Energy Technician sections are submitted in one cassette. /09/10/2017 saudi/09/10/2017
== END 2017-09-11 17:06 | disposition home or self-care (01) | DRG 225 ==
LOC: JER 12:11 → JERFT 12:11 → JASUSAT 17:55 → J8W 21:07 → OBSVTOIN 21:08 → INTOOBSV 21:08 → JASUSAT 21:08 → J8W 21:08
PROC: 0DTJ4ZZ Resection of Appendix, Percutaneous Endoscopic Approach (ICD-10-PCS; principal; 2017-09-10 11:00)
DX: K35.80 Unspecified acute appendicitis (principal); J45.909 Unspecified asthma, uncomplicated; R05 Cough; B86 Scabies; R19.7 Diarrhea, unspecified; E66.9 Obesity, unspecified; Z68.41 Body mass index [BMI] 40.0-44.9, adult; Z88.0 Allergy status to penicillin; Z87.891 Personal history of nicotine dependence
CPT/HCPCS: 36415; 74176-TC; 80053; 81003; 81015; 83605; 83690; 84703; 85025; 85027; 85610; 85730; 86850; 86900; 86901; 87086; 87804; 88304-TC; 93005; 93010; 94010; 94760; 99283-25; J0131; J1644

== ENCOUNTER 2017-09-11 23:38 | Inpatient (IN) | payer OTHER ==
--- NOTE | 2017-09-12 00:04 | PDOC ---
History of Present Illness - General Chief Complaint: Pain, Acute Stated Complaint: ABD PAIN Time Seen by Provider: 09/11/17 23:56 History Source: Patient Exam Limitations: No Limitations - History of Present Illness Initial Comments: 09/12/17 00:03 Patient is a 31 year old female with h/o obesity, who underwent a laprascopic appendectomy on 09/10 c/o RUQ abd pain which started [employer]. States she was fine until she had sudden onset of pain. States the 3 year old accidentally elbow her in the RUQ prior to the pain. Pain is 10/10, sharp continuos. Also c/o more bloating than when she left the hospital. Denies nausea, vomiting, fever. States she had passed gas today and had a small amount to eat. PMHX: as above PSOCHX: neg cig, etoh, drugs ALL: Keflex, PCN GENERAL/CONSTITUTIONAL: [No fever or chills. No weakness. No weight change.] HEAD, EYES, EARS, NOSE AND THROAT: [No change in vision. No ear pain or discharge. No sore throat.] CARDIOVASCULAR: [No chest pain or shortness of breath.] RESPIRATORY: [No cough, wheezing, or hemoptysis.] GASTROINTESTINAL: [No nausea, vomiting, diarrhea or constipation. No rectal bleeding.] GENITOURINARY: [No dysuria, frequency, or change in urination.] MUSCULOSKELETAL: [No joint or muscle swelling or pain. No neck or back pain.] SKIN AND BREASTS: [No rash or easy bruising.] NEUROLOGIC: [No headache, vertigo, loss of consciousness, or loss of sensation.] PSYCHIATRIC: [No depression or anxiety.] ENDOCRINE: [No increased thirst. No abnormal weight change.] HEMATOLOGIC/LYMPHATIC: [No anemia, easy bleeding, or history of blood clots.] ALLERGIC/IMMUNOLOGIC: [No hives or skin allergy. No latex allergy.] GENERAL: [The patient is awake, alert, and fully oriented, in no acute distress. ] HEAD: [Normal with no signs of trauma.] EYES: [Pupils equal, round and reactive to light, extraocular movements intact, sclera anicteric, conjunctiva clear.] ENT: [Ears normal, nares patent, oropharynx clear without exudates. Moist mucous membranes.] NECK: [Normal range of motion, supple without lymphadenopathy, JVD, or masses.] LUNGS: [Breath sounds equal, clear to auscultation bilaterally. No wheezes, and no crackles.] HEART: [Regular rate and rhythm, normal S1 and S2 without murmur, rub.] ABDOMEN: [Soft, tenderness RUQ, normoactive bowel sounds. No guarding, no rebound. No masses.] EXTREMITIES: [Normal range of motion, no edema. No clubbing or cyanosis. No cords, erythema, or tenderness.] NEUROLOGICAL: [Cranial nerves II through XII grossly intact. Normal speech, normal gait.] PSYCH: [Normal mood, normal affect.] SKIN: [Warm, Dry, normal turgor, no rashes or lesions noted.] Past History - Past Medical History Allergies/Adverse Reactions: Allergies Allergy/AdvReac Type Severity Reaction Status Date / Time cephalexin monohydrate Allergy Mild Rash Verified 09/12/17 00:00 [From Keflex] Penicillins Allergy Mild Rash Verified 09/12/17 00:00 Home Medications: Ambulatory Orders Oxycodone HCl/Acetaminophen [Percocet 5/325 -] 1 tab PO Q6H #40 tab MDD 5 Anemia: Yes Asthma: No Cancer: No Cardiac Disorders: No CVA: No COPD: No CHF: No DVT: No Dementia: No Diabetes: No GI Disorders: No Disorders: No HTN: No Hypercholesterolemia: No Liver Disease: No Seizures: No Thyroid Disease: No - Surgical History Abdominal Surgery: No Appendectomy: No Cardiac Surgery: No Cholecystectomy: No Lung Surgery: No Neurologic Surgery: No Orthopedic Surgery: No - Reproductive History (#): 0 Para: 0 Cervical CA: No Dysfunctional Uterine Bleeding: No Ectopic : No Endometrial CA: No Polycystic Ovaries: Yes Therapeutic (s) & number: No Tubal Ligation: No Spontaneous : 0 - Suicide/Smoking/Psychosocial Hx Smoking Status: Yes Smoking History: Never smoked Have you smoked in the past 12 months: No Number of Cigarettes Smoked Daily: 2 If you are a former smoker, when did you quit?: 2WKS Cigars Per Day: 0 Information on smoking cessation initiated: No 'Breaking Loose' booklet given: 03/20/15 Hx Alcohol Use: No Drug/Substance Use Hx: No Substance Use Type: None Hx Substance Use Treatment: No *Physical Exam - Vital Signs Last Vital Signs Temp Pulse Resp BP Pulse Ox 99.3 F 104 H 22 146/98 97 09/12/17 00:00 09/12/17 00:00 09/12/17 00:00 09/12/17 00:00 09/12/17 00:00 ED Treatment Course - LABORATORY CBC & Chemistry Diagram: 09/12/17 00:07 09/12/17 00:07 - RADIOLOGY Radiology Studies Ordered: Category Date Time Status ABDOMEN FLAT & UPRIGHT [RAD] Stat Radiology 09/12/17 00:01 Ordered CHEST - PA [RAD] Stat Radiology 09/12/17 00:01 Ordered Medical Decision Making - Medical Decision Making 09/12/17 00:03 Patient is a 31 year old female with h/o obesity, who underwent a laprascopic appendectomy on 09/10 c/o RUQ abd pain which started [employer]. DDX: perforated viscous, pneumonia, less likely bowel obstruction, cholecystitis, labs, obstructive series for free air Pain meds 09/12/17 02:20 Patient was given a total of Morphine 4mg IV. She still c/o pain and is table tender on exam. Xray reviewed showed no acute finding. will get CT abd/pelvis IV contrast only 09/12/17 03:46 Patient Full Name: ROSEMARIE DE LA CRUZ Patient Accession No: [id number] Patient : [id number] Reason for Exam: RUQ PAIN Referring Physician: Patient Name: DOROTHY HOUSTON THIS IS A PRELIMINARY REPORT FROM IMAGING SCRIPT ARTIST DATE OF SERVICE: 2017-09-12 02:56:36 IMAGES: [id number] EXAM: ABDOMEN \T\ PELVIS CT WITH CONTR HISTORY: Right upper quadrant pain COMPARISON: None. FINDINGS: Lung bases are clear. The visualized cardiac chambers are normal size and configuration. Normal liver, gallbladder, pancreas, spleen, adrenal glands and kidneys. There is questionable mild terminal ileitis and right-sided colitis . There is no aortic aneurysm. There is no significant retroperitoneal lymphadenopathy. Umbilical subcutaneous edema is noted which could indicate cellulitis, but there is no abscess or hematoma. Status post appendectomy. Small amount of edema and fluid in the right paracolic gutter may be related to appendectomy there is no abscess. The uterus and adnexal structures are normal. Urinary bladder air is likely due to recent Kamara catheterization. No bladder inflammation.. There is no pelvic free fluid. No discrete pelvic lymphadenopathy is identified. IMPRESSION: Small amount of presumed residual postoperative edema and fluid in the right paracolic gutter without abscess. Questionable mild terminal ileitis and right-sided colitis. Umbilical subcutaneous edema may be postoperative in nature and could represent cellulitis, abscess or hematoma. Individualized dose optimization techniques were used for this CT. THIS DOCUMENT HAS BEEN ELECTRONICALLY SIGNED Yusef Kohler MD 09/12/2017 03:32 EST MKaneD. Please call Imaging Manager Physical [phone] ([phone]) with questions. INTERPRETING RADIOLOGIST: Roc Kohler MD Electronically Signed: Sep 12, 2017 03:35AM EDT ct scan noted no acute finding will call Surgery 09/12/17 04:56 Patient noted to be febrile and tachycardic. Blood cultures, urine and urine culture done. Patient on Levaquin and Flagyl secondary to PCN ALLERGY. Dr. Arreola in the ER and will admit patient to his service. *DC/Admit/Observation/Transfer Diagnosis at time of Disposition: Abdominal pain Qualifiers: Abdominal location: right lower quadrant Qualified Code(s): R10.31 - Right lower quadrant pain Fever Qualifiers: Fever type: post-procedural Qualified Code(s): R50.82 - Postprocedural fever - Discharge Dispostion Condition at time of disposition: Stable Decision to Admit order: Yes - Referrals - Patient Instructions - Post Discharge Activity
[2017-09-12] MEDS ORDERED: morphine SULFATE 4 MG/ML VIAL ONE (00:13)
[2017-09-12 00:37] LABS: BASO % 0.5 % (0-2.0); EOS % 0.5 % (0-4.5); HEMATOCRIT 34.7 % (32.4-45.2); HEMOGLOBIN 11.7 GM/dL (10.7-15.3); LYMPH % 33.6 % (8-40); MCH 26.3 pg (25.7-33.7); MCHC 33.6 g/dl (32.0-36.0); MEAN CELL VOLUME 78.2 fl (80-96); MEAN PLT VOLUME 8.5 fl (7.5-11.1); MONO % 11.1 % (3.8-10.2); NEUT % 54.3 % (42.8-82.8); PLATELET COUNT 244 K/MM3 (134-434); RBC 4.44 M/mm3 (3.60-5.2); RDW 15.6 % (11.6-15.6); WHITE BLOOD COUNT 7.2 K/mm3 (4.0-10.0)
[2017-09-12] MEDS ORDERED: morphine CARPU-JECT 2 MG/1 ML DISP.SYRIN IVPUSH ONE ×3 (00:49→03:17)
[2017-09-12] MEDS ORDERED: MORPHINE SULFATE 2 MG/ML VIAL ONE ×2 (00:52→03:24)
[2017-09-12 00:59] LABS: ALBUMIN 3.5 g/dl (3.4-5.0); ANION GAP 6 (8-16); BILIRUBIN,TOTAL 0.3 mg/dL (0.2-1.0); BLOOD UREA NITROGEN 13 mg/dL (7-18); CALCIUM 8.9 mg/dL (8.5-10.1); CHLORIDE 104 mmol/L (98-107); CO2 31 mmol/L (21-32); CREATININE 0.9 mg/dL (0.55-1.02); GLUCOSE,RANDOM 109 mg/dL (74-106); POTASSIUM 4.1 mmol/L (3.5-5.1); SGOT/AST 38 U/L (15-37); SGPT/ALT 68 U/L (12-78); SODIUM 141 mmol/L (136-145); TOT PROT 7.5 g/dl (6.4-8.2)
[2017-09-12 01:00] LABS: ALK PHOS 76 U/L (45-117)
[2017-09-12 01:05] LABS: LIPASE 256 U/L (73-393)
[2017-09-12] MEDS ORDERED: SODIUM CHLORIDE 0.9% 500 ML INFUS.BAG IV ONE (04:17)
[2017-09-12] MEDS ORDERED: ACETAMINOPHEN 1000 MG/100 ML VIAL (NON FORMULARY) IVPB ONE (04:18)
[2017-09-12] MEDS ORDERED: ONDANSETRON 4 MG/2 ML VIAL IVPUSH ONE (04:18)
[2017-09-12] MEDS ORDERED: ACETAMINOPHEN INJECTION 100 ML IVPB ONE (04:31)
[2017-09-12] MEDS ORDERED: ONDANSETRON 4 MG/2 ML VIAL ONE (04:31)
--- NOTE | 2017-09-12 04:56 | HP ---
Admitting History and Physical - Admission Chief Complaint: abdominal Pain History of Present Illness: 31yo female PMH morbid obesity, s/p Lapaorscopic appendectomy 09/10 returned to the ED with complaints of abdominal pain. She was discharged today and felt improved initially when at home she reported a worseing pain in the right lateral abdomen. Reports it as stabbing rated 10/10. Prior to discharge she was passing BM and flatus, voiding spontaneously. Tolerated her diet. IN the ED she had CT scan shwoing what appeared to be expected post op changes. No leukocytosis but fever 101.5. We were asked to assess. History Source: Patient, Medical Record Limitations to Obtaining History: No Limitations - Past Medical History ...LMP: 06/14/17 Infectious Disease: Yes: STD's Additional Past Medical History: Morbid obesity - Past Surgical History Past Surgical History: Yes: - Smoking History Smoking history: Never smoked Have you smoked in the past 12 months: No Aproximately how many cigarettes per day: 2 If you are a former smoker, when did you quit?: 2WKS - Alcohol/Substance Use Hx Alcohol Use: No History of Substance Use: reports: None - Social History ADL: Independent History of Recent Travel: No Home Medications - Allergies Allergies/Adverse Reactions: Allergies Allergy/AdvReac Type Severity Reaction Status Date / Time cephalexin monohydrate Allergy Mild Rash Verified 09/12/17 00:00 [From Keflex] Penicillins Allergy Mild Rash Verified 09/12/17 00:00 - Home Medications Home Medications: Ambulatory Orders Oxycodone HCl/Acetaminophen [Percocet 5/325 -] 1 tab PO Q6H #40 tab MDD 5 Review of Systems - Review of Systems Constitutional: reports: Fever. denies: Chills Eyes: denies: Blurred Vision, Recent Change in Vision HENT: denies: Difficult Swallowing, Throat Pain Cardiovascular: denies: Chest Pain, Palpitations Respiratory: denies: Cough, SOB Gastrointestinal: reports: Abdominal Pain. denies: Constipation, Indigestion, Nausea, Vomiting Genitourinary: denies: Discharge, Dysuria Breasts: reports: No Symptoms Reported. denies: Pain Musculoskeletal: denies: Muscle Pain, Muscle Weakness Integumentary: denies: Bruising, Erythema, Pruritis Neurological: denies: Seizure, Syncope Endocrine: denies: Unexplained Weight Gain, Unexplained Weight Loss Hematology/Lymphatic: denies: Easily Bruised, Excessive Bleeding Psychiatric: denies: Anxiety, Depression Physical Examination Vital Signs: Vital Signs Temperature 101.5 F H 09/12/17 04:13 Pulse Rate 205 H 09/12/17 04:13 Respiratory Rate 26 H 09/12/17 04:13 Blood Pressure 107/62 09/12/17 04:13 O2 Sat by Pulse Oximetry (%) 98 09/12/17 04:13 Vital Signs Period Temp Pulse Resp BP Sys/Barney Pulse Ox Last 24 Hr 99.3 F-101.5 F 104-205 22- 107-146/62-98 97-98 Constitutional: Yes: Well Nourished, No Distress, Calm Eyes: Yes: Conjunctiva Clear, EOM Intact HENT: Yes: Atraumatic, Normocephalic Neck: Yes: Supple, Trachea Midline Cardiovascular: Yes: Regular Rate and Rhythm, S1, S2 Respiratory: Yes: Regular, CTA Bilaterally Gastrointestinal: Yes: Normal Bowel Sounds, Soft, Abdomen, Obese, Tenderness ( right upper quadrant tenderness). No: Distention, Tenderness, Epigastrium, Tenderness, Rebound Extremities: No: Cool, Cyanosis Edema: No Peripheral Pulses WNL: Yes Peripheral Pulses: Left Radial: 2+, Right Radial: 2+, Left Doralis Pedis: 2+, Right Dorsalis Pedis: 2+ Integumentary: No: Jaundice, Rash Wound/Incision: Yes: Clean/Dry, Well Approximated. No: Draining, Reddened, Bleeding Neurological: Yes: Alert, Oriented Psychiatric: Yes: Alert, Oriented Labs: CBC, BMP 09/12/17 00:07 09/12/17 00:07 Imaging - Results Cat Scan: Report Reviewed, Image Reviewed Problem List - Problems (1) Abdominal pain in female Assessment/Plan: 31 yo Female MMP POD#2 s/p Lap Appy with Right sided abdominal pain. Readmit for observation NPO and IVF hydration IV antibiotics Trend labs Serial Abdominal exams Analgesia Code(s): R10.9 - UNSPECIFIED ABDOMINAL PAIN (2) Morbid obesity with BMI of 40.0-44.9, adult Code(s): E66.01 - MORBID (SEVERE) OBESITY DUE TO EXCESS CALORIES; Z68.41 - BODY MASS INDEX (BMI) 40.0-44.9, ADULT (3) Fever Code(s): R50.9 - FEVER, UNSPECIFIED Qualifiers: Encounter type: initial encounter (4) Appendicitis Code(s): K37 - UNSPECIFIED APPENDICITIS Qualifiers: Appendicitis type: acute appendicitis Acute appendicitis type: with localized peritonitis Qualified Code(s): K35.3 - Acute appendicitis with localized peritonitis
[2017-09-12] MEDS ORDERED: IBUPROFEN 600 MG TABLET (FP) PO PRN (04:59)
[2017-09-12] MEDS ORDERED: morphine SULFATE 4 MG/ML VIAL IVPUSH PRN (04:59)
[2017-09-12] MEDS ORDERED: BISACODYL 5 MG TABLET.DR (FP) PO PRN (04:59)
[2017-09-12] MEDS ORDERED: ACETAMINOPHEN 325 MG TABLET (FP) PO PRN (04:59)
[2017-09-12] MEDS ORDERED: ONDANSETRON 4 MG/2 ML VIAL IVPUSH PRN (04:59)
[2017-09-12] MEDS ORDERED: LACTATED RINGERS SOLUTION 1,000 ML IV SCH (05:00)
[2017-09-12] MEDS: HEPARIN NA (PORCINE) 5,000 UNITS/ML 1ML VIAL SQ SCH ×2 (06:00→14:00)
[2017-09-12] MEDS ORDERED: HEPARIN NA (PORCINE) 5,000 UNITS/ML 1ML VIAL ONE (06:05)
[2017-09-12 07:22] LABS: URINE APPEARANCE CLEAR; URINE BILIRUBIN NEGATIVE (<2.0 mg/dL); URINE COLOR LTYELLOW; URINE GLUCOSE (UA) NEGATIVE (NEGATIVE); URINE KETONE NEGATIVE (NEGATIVE); URINE LEUK ESTERASE NEGATIVE (NEGATIVE); URINE NITRITE NEGATIVE (NEGATIVE); URINE PROTEIN NEGATIVE (NEGATIVE); URINE UROBILINOGEN NEGATIVE mg/dL (0.2-1.0)
[2017-09-12 07:25] LABS: EPI CELLS FEW /HPF (FEW); URINE MUCUS RARE
[2017-09-12 09:10] VITALS: BP 116/62; PULSE 89; TEMP 99.2; BMI 48.2
--- NOTE | 2017-09-12 09:38 | CON.ID ---
Consult Consult Specialty:: infectious diseases Referred by:: Reason for Consultation:: abd pain dirrhoea - History of Present Illness Chief Complaint: abd pain ruq History of Present Illness: 31yo female PMH morbid obesity, s/p Lapaorscopic appendectomy 09/10 returned to the ED with complaints of abdominal pain. She was discharged yesterday and felt improved initially when at home she reported a worseing pain in the right lateral abdomen and ruq Reports it as stabbing rated 10/10. Prior to discharge she was passing BM and flatus, voiding spontaneously. Tolerated her diet. patient was worked up in the ED and ct scan was done which did not show anything significant .patient did have fever of 101.5 currently she is c/o of mainly ruq pain - History Source History Provided By: Patient Limitations to Obtaining History: No Limitations - Past Medical History ...LMP: 06/15/15 ...: No Infectious Disease: Yes: STD's - Past Surgical History Past Surgical History: Yes: - Alcohol/Substance Use Hx Alcohol Use: Yes (socially) History of Substance Use: reports: None - Smoking History Smoking history: Former smoker Have you smoked in the past 12 months: Yes Aproximately how many cigarettes per day: 3 If you are a former smoker, when did you quit?: october 2016 - Social History ADL: Independent History of Recent Travel: No Home Medications - Allergies Allergies/Adverse Reactions: Allergies Allergy/AdvReac Type Severity Reaction Status Date / Time cephalexin monohydrate Allergy Mild Rash Verified 09/12/17 00:00 [From Keflex] Penicillins Allergy Mild Rash Verified 09/12/17 00:00 - Home Medications Home Medications: Ambulatory Orders Oxycodone HCl/Acetaminophen [Percocet 5/325 -] 1 tab PO Q6H #40 tab MDD 5 Review of Systems - Review of Systems Constitutional: reports: Fever Eyes: reports: No Symptoms HENT: reports: No Symptoms Neck: reports: No Symptoms Cardiovascular: reports: No Symptoms Respiratory: reports: No Symptoms Gastrointestinal: reports: Abdominal Pain (ruq) Genitourinary: reports: No Symptoms Breasts: reports: No Symptoms Reported Musculoskeletal: reports: No Symptoms Integumentary: reports: No Symptoms Neurological: reports: No Symptoms Endocrine: reports: No Symptoms Hematology/Lymphatic: reports: No Symptoms Psychiatric: reports: No Symptoms Physical Exam Vital Signs: Vital Signs Temperature 99.2 F 09/12/17 09:03 Pulse Rate 89 09/12/17 09:03 Respiratory Rate 20 09/12/17 09:03 Blood Pressure 116/62 09/12/17 09:03 O2 Sat by Pulse Oximetry (%) 95 09/12/17 09:03 Constitutional: Yes: Well Nourished, Calm, Mild Distress, Obese Cardiovascular: Yes: Regular Rate and Rhythm Respiratory: Yes: Regular, CTA Bilaterally Gastrointestinal: Yes: Normal Bowel Sounds, Soft, Tenderness (ruq) Musculoskeletal: Yes: Other (tenderness ruq) Extremities: Yes: WNL Wound/Incision: Yes: Clean/Dry Neurological: Yes: Alert, Oriented Psychiatric: Yes: Alert, Oriented Labs: CBC, BMP 09/12/17 00:07 09/12/17 00:07 Imaging - Results Cat Scan: Report Reviewed, Image Reviewed Assessment/Plan Problem List - Problems (1) Abdominal pain in female Code(s): R10.9 - UNSPECIFIED ABDOMINAL PAIN (2) Morbid obesity with BMI of 40.0-44.9, adult Code(s): E66.01 - MORBID (SEVERE) OBESITY DUE TO EXCESS CALORIES; Z68.41 - BODY MASS INDEX (BMI) 40.0-44.9, ADULT (3) Fever Code(s): R50.9 - FEVER, UNSPECIFIED Qualifiers: Encounter type: initial encounter (4) Appendicitis Code(s): K37 - UNSPECIFIED APPENDICITIS Qualifiers: Appendicitis type: acute appendicitis Acute appendicitis type: with localized peritonitis Qualified Code(s): K35.3 - Acute appendicitis with localized peritonitis patints ct scan does not show any findings but patient has pain in the rt side of abd as far as i think the pain is muscular patient did have fever but currently stable plan i would continue current mgmt will watch fever ct no findings will continue to monitor rest as per the surgical team
[2017-09-12] MEDS ORDERED: PANTOPRAZOLE 40 MG TABLET (FP) PO SCH (10:00)
[2017-09-12 10:23] LABS: BASO % 0.6 % (0-2.0); EOS % 0.4 % (0-4.5); HEMATOCRIT 29.8 % (32.4-45.2); HEMOGLOBIN 10.3 GM/dL (10.7-15.3); LYMPH % 26.7 % (8-40); MCH 26.9 pg (25.7-33.7); MCHC 34.6 g/dl (32.0-36.0); MEAN CELL VOLUME 77.9 fl (80-96); MONO % 10.2 % (3.8-10.2); NEUT % 62.1 % (42.8-82.8); PLATELET COUNT 207 K/MM3 (134-434); RBC 3.82 M/mm3 (3.60-5.2); RDW 15.3 % (11.6-15.6); WHITE BLOOD COUNT 6.2 K/mm3 (4.0-10.0)
--- NOTE | 2017-09-12 14:19 | DS ---
Physical Examination Vital Signs: Vital Signs Temperature 99.2 F 09/12/17 09:03 Pulse Rate 89 09/12/17 09:03 Respiratory Rate 20 09/12/17 09:03 Blood Pressure 116/62 09/12/17 09:03 O2 Sat by Pulse Oximetry (%) 95 09/12/17 09:03 Vital Signs Period Temp Pulse Resp BP Sys/Barney Pulse Ox Last 24 Hr 99.2 F-101.5 F 68-205 17-26 107-146/62-98 95-100 Findings/Remarks: abdominal pain improved. using incentive spiromter. 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 Constitutional: Yes: Well Nourished, No Distress, Calm, Obese Eyes: Yes: Conjunctiva Clear, EOM Intact HENT: Yes: Atraumatic, Normocephalic Neck: Yes: Supple, Trachea Midline Cardiovascular: Yes: Regular Rate and Rhythm, S1, S2 Respiratory: Yes: Regular, CTA Bilaterally Gastrointestinal: Yes: Normal Bowel Sounds, Soft ...Rectal Exam: Yes: Deferred Renal/: No: CVA Tenderness - Left, CVA Tenderness - Right Extremities: No: Calf Tenderness, Cool, Cyanosis Peripheral Pulses: Left Doralis Pedis: 2+, Right Dorsalis Pedis: 2+ Wound/Incision: Yes: Clean/Dry, Well Approximated, Open to air Neurological: Yes: Alert, Oriented Psychiatric: Yes: Alert, Oriented Labs: CBC, BMP 09/12/17 10:05 09/12/17 00:07 Discharge Summary Reason For Visit: ABD PAIN, FEVER Current Active Problems Fever (Acute) Morbid obesity with BMI of 40.0-44.9, adult (Acute) Procedures: Principal: iv antibiotics and incentive spirometery Other Procedures: ct scan abdomen Hospital Course: admitted for observation, stable and improve. Condition: Improved - Instructions Diet, Activity, Other Instructions: Postoperative instructions: You had a laparoscopic appendectomy on DATE by Dr. Jose Alberto Arreola of [facility]. Activity: Resume your usual activities gradually, but no heavy exertion or lifting more than 10-15 pounds for 1 month. Remove dressings 48 hours after surgery; sticky tapes underneath will fall off by themselves. You may shower daily starting then, just pat the incision areas dry. Eat lightly at first, but advance to your usual diet as tolerated. Pain: For pain, you may use and alternate Tylenol (acetaminophen) and/or ibuprofen every 6 hours each as needed; this means that you can take one OR the other at 3-hour intervals. If you are prescribed a Tylenol/narcotic combination for severe pain, use it instead of plain Tylenol as needed and switch back when your pain starts decreasing. Do not take more than 4000mg of acetaminophen in a day. Take medications as prescribed or indicated on the labeling. Follow-up: Call Dr. Arreola' office at [phone] to make your postop appointment (Wednesday ~2 weeks after surgery). Clinic is held in the [facility] on the first floor of [facility]. Call the office if you have: * increasing pain not responsive to pain medication * fever of 101F or higher * vomiting * unusual or increasing bleeding or drainage from wounds * increasing redness or swelling at wound sites * inability to urinate Also, see your primary medical doctor within 1-2 weeks. Referrals: Jose Alberto Arreola MD [Staff Physician] - Disposition: HOME - Home Medications Comprehensive Discharge Medication List: Ambulatory Orders Oxycodone HCl/Acetaminophen [Percocet 325 -] 1 tab PO Q6H #40 tab MDD 5
== END 2017-09-12 14:56 | disposition home or self-care (01) | DRG 813 ==
LOC: JER 23:38 → JERBED 09-12 05:00 → UNDOADMIN 09-12 05:40 → JERBED 09-12 05:40 → J7W 09-12 07:30
DX: T88.8XXA Other specified complications of surgical and medical care, not elsewhere classified, initial encounter (principal); R50.82 Postprocedural fever; E66.01 Morbid (severe) obesity due to excess calories; Z68.42 Body mass index [BMI] 45.0-49.9, adult; R00.0 Tachycardia, unspecified; R10.31 Right lower quadrant pain; Z87.891 Personal history of nicotine dependence; Z88.0 Allergy status to penicillin
CPT/HCPCS: 36415; 71045-TC-FY; 74019-TC-FY; 74177-TC; 80053; 81003; 81015; 82550; 83690; 84484; 84703; 85025; 85379; 87040; 87086; 99284-25; J0131; J1644

== ENCOUNTER 2018-02-22 11:21 | Emergency (ER) | payer OTHER ==
[2018-02-22 11:29] VITALS: BP 112/58; PULSE 84; TEMP 98.4; BMI 46.6
--- NOTE | 2018-02-22 12:19 | PDOC ---
History of Present Illness - General Chief Complaint: Vaginal Bleeding Stated Complaint: HEAVY BLEEDING Time Seen by Provider: 02/22/18 11:55 History Source: Patient - History of Present Illness Timing/Duration: reports: constant, changing over time Past History - Past Medical History Allergies/Adverse Reactions: Allergies Allergy/AdvReac Type Severity Reaction Status Date / Time cephalexin monohydrate Allergy Mild Rash Verified 09/12/17 00:00 [From Keflex] Penicillins Allergy Mild Rash Verified 09/12/17 00:00 Home Medications: Ambulatory Orders Metformin HCl [Metformin HCl ER] 500 mg PO DAILY 02/22/18 Anemia: Yes Asthma: No (asthma as a child) Cancer: No Cardiac Disorders: No CVA: No COPD: No CHF: No DVT: No Dementia: No Diabetes: No GI Disorders: No Disorders: No HTN: No Hypercholesterolemia: No Liver Disease: No Seizures: No Thyroid Disease: No - Surgical History Abdominal Surgery: No Appendectomy: No Cardiac Surgery: No Cholecystectomy: No Lung Surgery: No Neurologic Surgery: No Orthopedic Surgery: No - Reproductive History (#): 0 Para: 0 Cervical CA: No Dysfunctional Uterine Bleeding: No Ectopic : No Endometrial CA: No Polycystic Ovaries: Yes Therapeutic (s) & number: No Tubal Ligation: No Spontaneous : 0 - Immunization History Immunization Up to Date: No - Suicide/Smoking/Psychosocial Hx Smoking Status: Yes Smoking History: Never smoked Have you smoked in the past 12 months: No Number of Cigarettes Smoked Daily: 3 If you are a former smoker, when did you quit?: october 2016 Cigars Per Day: 0 Information on smoking cessation initiated: No 'Breaking Loose' booklet given: 09/12/17 Hx Alcohol Use: No Drug/Substance Use Hx: No Substance Use Type: None Hx Substance Use Treatment: No Review of Systems - Review of Systems Constitutional: No: Chills, Fever ABD/GI: Yes: Abdominal cramping. No: Nausea, Vomiting : No: Dysuria *Physical Exam - Vital Signs Last Vital Signs Temp Pulse Resp BP Pulse Ox 98.4 F 84 18 112/58 L 98 02/22/18 11:25 02/22/18 11:25 02/22/18 11:25 02/22/18 11:25 02/22/18 11:25 - Physical Exam General Appearance: Yes: Appropriately Dressed. No: Apparent Distress HEENT: positive: Normal Voice Neck: positive: Supple Respiratory/Chest: negative: Respiratory Distress Gastrointestinal/Abdominal: positive: Soft. negative: Tender Integumentary: positive: Dry, Warm Neurologic: positive: Fully Oriented, Alert, Normal Mood/Affect Moderate Sedation - Procedure Monitoring Vital Signs: Procedure Monitoring Vital Signs Temperature 98.4 F 02/22/18 11:25 Pulse Rate 84 02/22/18 11:25 Respiratory Rate 18 02/22/18 11:25 Blood Pressure 112/58 L 02/22/18 11:25 O2 Sat by Pulse Oximetry (%) 98 02/22/18 11:25 ED Treatment Course - LABORATORY CBC & Chemistry Diagram: 02/22/18 12:32 02/22/18 12:32 Medical Decision Making - Medical Decision Making 02/22/18 12:18 32 yo F, obesity, PCOS, recently started on metformin and provera, irreg menses , s/p uterine polyp removal, anemia, s/p transfusion x 1, here w/ menorrhagia x 3 days. Currently using tampon and states in 2 days she went through 18 tampons. Also reports clots and some vague lower abdominal cramping. Now feels weak. Pt states she got off control 05/02 as she is currently trying to conceive. After no menses x several months and unable to get , went to see her BALLER TENDER several weeks ago and now on provera "to fully mature my eggs" per pt. see exam Menorrhagia Stable and well april -upreg -labs 02/22/18 12:31 02/22/18 13:17 Hgb of 12 w/ neg preg test. Patient remained stable in ED. Will dc with BALLER TENDER follow-up this week *DC/Admit/Observation/Transfer Diagnosis at time of Disposition: Menorrhagia Qualifiers: Menorrahagia type: with irregular cycle Qualified Code(s): N92.1 - Excessive and frequent menstruation with irregular cycle - Discharge Dispostion Disposition: HOME Condition at time of disposition: Stable - Referrals Referrals: Bill Jackson MD [Primary Care Provider] - - Patient Instructions Printed Discharge Instructions: DI for Menorrhagia Additional Instructions: Your blood work is normal here. Your hemoglobin today was 12 and your test was negative. Please contact your BALLER TENDER this week - Post Discharge Activity
[2018-02-22] MEDS ORDERED: SODIUM CHLORIDE 1,000 ML IV STA (12:20)
[2018-02-22 12:40] LABS: BASO % 1.5 % (0-2.0); EOS % 2.7 % (0-4.5); HEMATOCRIT 37.7 % (32.4-45.2); HEMOGLOBIN 12.2 GM/dL (10.7-15.3); LYMPH % 43.3 % (8-40); MCH 25.4 pg (25.7-33.7); MCHC 32.4 g/dl (32.0-36.0); MEAN CELL VOLUME 78.5 fl (80-96); MONO % 6.1 % (3.8-10.2); NEUT % 46.4 % (42.8-82.8); PLATELET COUNT 293 K/MM3 (134-434); RDW 15.7 % (11.6-15.6); WHITE BLOOD COUNT 6.4 K/mm3 (4.0-10.0)
[2018-02-22 12:52] LABS: INR 1.07 (0.83-1.09); PROTHROMBIN TIME (PATIENT) 12.6 SEC (9.7-13.0)
[2018-02-22 13:06] LABS: ALBUMIN 3.8 g/dl (3.4-5.0); ALK PHOS 86 U/L (45-117); ANION GAP 3 MMOL/L (8-16); BILIRUBIN,TOTAL 0.3 mg/dL (0.2-1); BLOOD UREA NITROGEN 11 mg/dL (7-18); CALCIUM 9.1 mg/dL (8.5-10.1); CHLORIDE 106 mmol/L (98-107); CO2 30 mmol/L (21-32); CREATININE 0.7 mg/dL (0.55-1.3); GLUCOSE,RANDOM 90 mg/dL (74-106); POTASSIUM 4.1 mmol/L (3.5-5.1); SGOT/AST 13 U/L (15-37); SGPT/ALT 26 U/L (13-61); SODIUM 138 mmol/L (136-145); TOT PROT 7.5 g/dl (6.4-8.2)
== END 2018-02-22 13:31 | disposition home or self-care (01) ==
LOC: JER 11:21
PROC: 3E0337Z Introduction of Electrolytic and Water Balance Substance into Peripheral Vein, Percutaneous Approach (ICD-10-PCS; principal; 2018-02-22)
DX: N92.1 Excessive and frequent menstruation with irregular cycle (principal); E28.2 Polycystic ovarian syndrome; E66.9 Obesity, unspecified; Z68.42 Body mass index [BMI] 45.0-49.9, adult; D64.9 Anemia, unspecified; Z87.09 Personal history of other diseases of the respiratory system
CPT/HCPCS: 36415; 80053; 84703; 85025; 85610; 86850; 86900; 86901; 99282-25; J7030

== ENCOUNTER 2018-04-29 12:55 | Emergency (ER) | payer OTHER ==
[2018-04-29 13:37] VITALS: BP 139/73; PULSE 79; TEMP 97.9; BMI 46.6
--- NOTE | 2018-04-29 13:38 | PDOC ---
Rapid Medical Evaluation Chief Complaint: Rectal Bleed Time Seen by Provider: 04/29/18 13:34 Medical Evaluation: Allergies Allergy/AdvReac Type Severity Reaction Status Date / Time cephalexin monohydrate Allergy Mild Rash Verified 09/12/17 00:00 [From Keflex] Penicillins Allergy Mild Rash Verified 09/12/17 00:00 04/29/18 13:34 I performed a brief in-person evaluation of this patient. Chief complaint: Rectal bleed with clots x 2 days, not only with BMs. No abd pain. Some lightheadedness with standing. Pertinent physical exam findings: Alert, no distress. No abnormal v/s. No focal abdominal tenderness. I have ordered the following: CBC, CMP, T&S UA, urine preg Patient to proceed to the ED for further evaluation. Discharge Disposition - Diagnosis Rectal bleed - Referrals - Patient Instructions - Post Discharge Activity
[2018-04-29 14:03] LABS: BASO % 1.2 % (0-2.0); EOS % 2.7 % (0-4.5); HEMATOCRIT 36.4 % (32.4-45.2); HEMOGLOBIN 12.3 GM/dL (10.7-15.3); LYMPH % 42.1 % (8-40); MCH 26.4 pg (25.7-33.7); MCHC 33.8 g/dl (32.0-36.0); MEAN PLT VOLUME 8.2 fl (7.5-11.1); MONO % 6.8 % (3.8-10.2); NEUT % 47.2 % (42.8-82.8); PLATELET COUNT 263 K/MM3 (134-434); RBC 4.66 M/mm3 (3.60-5.2); WHITE BLOOD COUNT 6.4 K/mm3 (4.0-10.0)
--- NOTE | 2018-04-29 14:23 | PDOC ---
History of Present Illness - General Chief Complaint: Rectal Bleed Stated Complaint: RECTAL BLEED Time Seen by Provider: 04/29/18 13:34 - History of Present Illness Initial Comments: 04/29/18 13:56 32 yo F with h/o morbid obesity, laparoscopic appendectomy (09/10) who p/w rectal bleed. Patient reports acute onset of BRBPR begining yesterday evening, following straining with bowel movement. Endorses another episode of BRBPR this AM, with BM. No other asx, complaints. Patient with longstanding constipation. Reports NSAID use 30 Ibuprofen tablets completed 3 weeks ago for back pain. Denies rectal itching/burning. Patient denies RIVERA, vision change, palpitations, cough, wheezing, orthopena, PND , leg swelling/pain, N/V, F,C, CP, SOB, urinary complaints, hematuria, BPR, abdominal pain, diarrhea, constipation, lightheadedness, weakness, sensory changes. PMHx: as noted above. Does not f/w GI. Denies h/o endoscopy or colonsocopy. ROS: as noted SHx: Denies Etoh, IVDA, tobacco use. Allergies: NKDA Past History - Past Medical History Allergies/Adverse Reactions: Allergies Allergy/AdvReac Type Severity Reaction Status Date / Time cephalexin monohydrate Allergy Mild Rash Verified 09/12/17 00:00 [From Keflex] Penicillins Allergy Mild Rash Verified 09/12/17 00:00 Home Medications: Ambulatory Orders metFORMIN HCL [Metformin HCl ER] 500 mg PO DAILY 02/22/18 Polyethylene Glycol 3350 [Miralax (For Bowel Prep) -] 17 gm PO DAILY #1 bottle 04/29/18 Witch Alejandra [Preparation H] 1 each TP DAILY #1 med..pad 04/29/18 Anemia: Yes Asthma: No (asthma as a child) Cancer: No Cardiac Disorders: No CVA: No COPD: No CHF: No DVT: No Dementia: No Diabetes: No GI Disorders: No Disorders: No HTN: No Hypercholesterolemia: No Liver Disease: No Seizures: No Thyroid Disease: No - Surgical History Abdominal Surgery: No Appendectomy: Yes Cardiac Surgery: No Cholecystectomy: No Lung Surgery: No Neurologic Surgery: No Orthopedic Surgery: No - Reproductive History (#): 0 Para: 0 Cervical CA: No Dysfunctional Uterine Bleeding: No Ectopic : No Endometrial CA: No Polycystic Ovaries: Yes Therapeutic (s) & number: No Tubal Ligation: No Spontaneous : 0 - Immunization History Immunization Up to Date: No - Suicide/Smoking/Psychosocial Hx Smoking Status: Yes Smoking History: Never smoked Have you smoked in the past 12 months: No Number of Cigarettes Smoked Daily: 3 If you are a former smoker, when did you quit?: october 2016 Cigars Per Day: 0 Information on smoking cessation initiated: No 'Breaking Loose' booklet given: 09/12/17 Hx Alcohol Use: No Drug/Substance Use Hx: No Substance Use Type: None Hx Substance Use Treatment: No Review of Systems - Review of Systems Comments:: 04/29/18 16:01 GENERAL/CONSTITUTIONAL: No fever or chills. No weakness. HEAD, EYES, EARS, NOSE AND THROAT: No change in vision. No ear pain or discharge. No sore throat. CARDIOVASCULAR: No chest pain or shortness of breath RESPIRATORY: No cough, wheezing, or hemoptysis. GASTROINTESTINAL: + BRBPR, constipation. No nausea, vomiting, diarrhea GENITOURINARY: No dysuria, frequency, or change in urination. MUSCULOSKELETAL: No joint or muscle swelling or pain. No neck or back pain. SKIN: No rash NEUROLOGIC: No headache, vertigo, loss of consciousness, or change in strength/ sensation. ENDOCRINE: No increased thirst. No abnormal weight change HEMATOLOGIC/LYMPHATIC: No anemia, easy bleeding, or history of blood clots. ALLERGIC/IMMUNOLOGIC: No hives or skin allergy. *Physical Exam - Vital Signs Last Vital Signs Temp Pulse Resp BP Pulse Ox 97.9 F 79 16 139/73 100 04/29/18 13:34 04/29/18 13:34 04/29/18 13:34 04/29/18 13:34 04/29/18 13:34 - Physical Exam Comments: 04/29/18 16:02 GENERAL: Awake, alert, and fully oriented, in no acute distress HEAD: No signs of trauma, normocephalic, atraumatic EYES: PERRLA, EOMI, sclera anicteric, conjunctiva clear ENT: Hearing grossly normal, nares patent, oropharynx clear without exudates. Moist mucosa NECK: Normal ROM, supple, no lymphadenopathy, JVD, or masses LUNGS: No distress, speaks full sentences, clear to auscultation bilaterally HEART: Regular rate and rhythm, normal S1 and S2, no murmurs, rubs or gallops, peripheral pulses normal and equal bilaterally. ABDOMEN: Soft, nontender, normoactive bowel sounds. No guarding, no rebound. No masses RECTAL ( chaperoned by Debra Chang PUMP SERVICER HELPER): + 2 cm non-thrombosed hemorrhoid at inferior rectum. Neg anal fissure,prolapse, skin change, fecal impaction. EXTREMITIES : Normal inspection, Normal range of motion, no edema. No clubbing or cyanosis. SKIN: Warm, Dry, normal turgor, no rashes or lesions noted Moderate Sedation - Procedure Monitoring Vital Signs: Procedure Monitoring Vital Signs Temperature 97.9 F 04/29/18 13:34 Pulse Rate 79 04/29/18 13:34 Respiratory Rate 16 04/29/18 13:34 Blood Pressure 139/73 04/29/18 13:34 O2 Sat by Pulse Oximetry (%) 100 04/29/18 13:34 ED Treatment Course - LABORATORY CBC & Chemistry Diagram: 04/29/18 15:33 04/29/18 13:47 Medical Decision Making - Medical Decision Making 04/29/18 15:58 32 yo F with h/o morbid obesity, laparoscopic appendectomy (09/10) who BRBPR x 2 days. Vitals wnl, AF, A&Ox3. Physical exam with active bright red blood, and inferior 2 cm non thrombosed hemmhroid. Denies palpitations, cough, wheezing, N/ V, F,C, CP, SOB, urinary complaints, hematuria, abdominal pain, diarrhea, lightheadedness, weakness, sensory changes.bleeding likely 2/2 hemorrhoids. Physical exam otherwise unremarkable. Low suspicion UGI bleed. Ed Course: Patient arrives from fast track Counseled patient on hemmorhoid control, sitz baths, fiber intake, fluids Miralax, Prep H sent to pharmacy CBC: Unremarkable, H/H: 12.3/36.4 CMP: Unremarkable UA: Neg HCG: Neg Advised to f/u with GI, PMD. 04/29/18 16:21 FOBT+ 04/29/18 16:40 H/H: 12.7/37.6 stable for d/c with return precautions. *DC/Admit/Observation/Transfer Diagnosis at time of Disposition: Rectal bleed - Prescriptions Prescriptions: Polyethylene Glycol 3350 [Miralax (For Bowel Prep) -] 17 gm PO DAILY #1 bottle Witch Alejandra [Preparation H] 1 each TP DAILY #1 med..pad - Referrals Referrals: Bill Jackson MD [Primary Care Provider] - - Patient Instructions Printed Discharge Instructions: DI for Hemorrhoids, DI for Rectal Bleeding Additional Instructions: Please return to the emergency department with any new or worsening symptoms or concerns. Please follow up with your primary care physician within 72 hours. Please follow up with gastroenterology within one week. Please take Miralax and Preparation-H as prescribed. - Post Discharge Activity - Attestations Physician Attestion: 04/29/18 15:37 I attest to the information provided in this note.
[2018-04-29 14:25] LABS: URINE APPEARANCE SLCLOUDY; URINE BILIRUBIN NEGATIVE (<2.0 mg/dL); URINE COLOR YELLOW; URINE GLUCOSE (UA) NEGATIVE (NEGATIVE); URINE KETONE NEGATIVE (NEGATIVE); URINE LEUK ESTERASE NEGATIVE (NEGATIVE); URINE NITRITE NEGATIVE (NEGATIVE); URINE PROTEIN NEGATIVE (NEGATIVE); URINE UROBILINOGEN NEGATIVE mg/dL (0.2-1.0)
[2018-04-29 14:26] LABS: HCG,QUALITATIVE URINE Negative
[2018-04-29 14:30] LABS: ALBUMIN 3.8 g/dl (3.4-5.0); ALK PHOS 85 U/L (45-117); ANION GAP 6 MMOL/L (8-16); BILIRUBIN,TOTAL 0.3 mg/dL (0.2-1); BLOOD UREA NITROGEN 17 mg/dL (7-18); CALCIUM 8.9 mg/dL (8.5-10.1); CHLORIDE 107 mmol/L (98-107); CO2 26 mmol/L (21-32); CREATININE 0.7 mg/dL (0.55-1.3); GLUCOSE,RANDOM 78 mg/dL (74-106); POTASSIUM 3.8 mmol/L (3.5-5.1); SGOT/AST 16 U/L (15-37); SGPT/ALT 27 U/L (13-61); SODIUM 139 mmol/L (136-145); TOT PROT 7.4 g/dl (6.4-8.2)
[2018-04-29 15:28] LABS: INR 1.02 (0.83-1.09)
[2018-04-29 16:12] LABS: BASO % 0.6 % (0-2.0); EOS % 2.8 % (0-4.5); HEMATOCRIT 37.6 % (32.4-45.2); HEMOGLOBIN 12.7 GM/dL (10.7-15.3); LYMPH % 42.8 % (8-40); MCH 26.4 pg (25.7-33.7); MCHC 33.9 g/dl (32.0-36.0); MEAN CELL VOLUME 77.9 fl (80-96); MEAN PLT VOLUME 8.3 fl (7.5-11.1); MONO % 5.4 % (3.8-10.2); NEUT % 48.4 % (42.8-82.8); PLATELET COUNT 270 K/MM3 (134-434); RBC 4.82 M/mm3 (3.60-5.2); RDW 16.1 % (11.6-15.6); WHITE BLOOD COUNT 6.8 K/mm3 (4.0-10.0)
--- NOTE | 2018-04-29 16:42 | PDOC ---
Attending Attestation - Resident Resident Name: Taj Olguin - ED Attending Attestation I have performed the following: I have examined & evaluated the patient, The case was reviewed & discussed with the resident, I agree w/resident's findings & plan, Exceptions are as noted - HPI HPI: 04/29/18 16:43 32 F with no PMH presents to ED with blood-streaked stool. Pt states that she noticed blood in the toilet mixed with brown stool today. Denies any rectal or abdominal pain. States that she has chronic constipation and often strains hard to pass stool. Denies nausea/vomiting. Denies any dark tarry stools. No h/o GI bleed. - Physicial Exam PE: 04/29/18 16:45 "GENERAL: Awake, alert, and fully oriented, in no acute distress. HEAD: No signs of trauma EYES: PERRLA, EOMI, sclera anicteric, conjunctiva clear ENT: Auricles normal inspection, hearing grossly normal, nares patent, oropharynx clear without exudates. Moist mucosa NECK: Nontender, no stepoffs, Normal ROM, supple, no lymphadenopathy, JVD, or masses LUNGS: Breath sounds equal, clear to auscultation bilaterally. No wheezes, and no crackles HEART: Regular rate and rhythm, normal S1 and S2, no murmurs, rubs or gallops ABDOMEN: Soft, nontender, normoactive bowel sounds. No guarding, no rebound. No masses EXTREMITIES: Normal range of motion, no edema. No clubbing or cyanosis. No cords, erythema, or tenderness NEUROLOGICAL: Cranial nerves II through XII intact. 5/5 strength and sensation in all extremities, Normal speech, normal gait, normal cerebellar function SKIN: Warm, Dry, normal turgor, no rashes or lesions noted. RECTAL: + external hemorrhoid, non-thrombosed, brown stool with red streaks - Medical Decision Making 04/29/18 16:45 32 F with blood-streaked stool, likely 2/2 hemorrhoid found on exam. No evidence of melenotic stool. - Labs - Serial CBC to r/o significant blood loss 04/29/18 16:46 Labs wnl CBC stable x 2 Pt is well appearing, with normal vitals. Clinically stable for DC at this time. I discussed the physical exam findings, ancillary test results and final diagnoses with the patient. I answered all of the patient's questions. The patient was satisfied with the care received and felt comfortable with the discharge plan and treatment plan. The patient agrees to follow up with the primary care physician within 24-72 hours.
== END 2018-04-29 17:05 | disposition home or self-care (01) ==
LOC: JER 12:55
DX: K62.5 Hemorrhage of anus and rectum (principal); E66.01 Morbid (severe) obesity due to excess calories; Z68.42 Body mass index [BMI] 45.0-49.9, adult
CPT/HCPCS: 36415; 80053; 81003; 82272; 84703; 85025; 85610; 86850; 86900; 86901; 99282-25

== ENCOUNTER 2018-08-19 17:51 | Emergency (ER) | payer OTHER ==
--- NOTE | 2018-08-19 17:56 | PDOC ---
Rapid Medical Evaluation Time Seen by Provider: 08/19/18 17:54 Medical Evaluation: Allergies Allergy/AdvReac Type Severity Reaction Status Date / Time cephalexin monohydrate Allergy Mild Rash Verified 09/12/17 00:00 [From Keflex] Penicillins Allergy Mild Rash Verified 09/12/17 00:00 08/19/18 17:54 HPI:+ bleeding PV since this morning PE: deferred ORDERS: labs US Discharge Disposition - Diagnosis Threatened - Referrals - Patient Instructions - Post Discharge Activity
[2018-08-19 17:59] VITALS: BMI 47.0
[2018-08-19 19:27] LABS: BASO % 0.8 % (0-2.0); EOS % 2.8 % (0-4.5); HEMATOCRIT 39.1 % (32.4-45.2); HEMOGLOBIN 12.7 GM/dL (10.7-15.3); LYMPH % 50.5 % (8-40); MCH 25.6 pg (25.7-33.7); MCHC 32.6 g/dl (32.0-36.0); MEAN CELL VOLUME 78.4 fl (80-96); MEAN PLT VOLUME 8.4 fl (7.5-11.1); MONO % 6.4 % (3.8-10.2); NEUT % 39.5 % (42.8-82.8); PLATELET COUNT 272 K/MM3 (134-434); RBC 4.98 M/mm3 (3.60-5.2); RDW 16.6 % (11.6-15.6); WHITE BLOOD COUNT 6.6 K/mm3 (4.0-10.0)
[2018-08-19 19:43] LABS: INR 1.1 (0.83-1.09)
[2018-08-19 20:06] VITALS: TEMP 98.4
[2018-08-19 20:12] LABS: HCG,QUALITATIVE URINE Negative
[2018-08-19 20:16] LABS: EPI CELLS 3.3 /HPF (0-5/HPF); HYALINE CASTS 3 /lpf (0-8); URINE APPEARANCE CLEAR; URINE BILIRUBIN NEGATIVE (NEGATIVE); URINE COLOR ORANGE; URINE GLUCOSE (UA) NEGATIVE (NEGATIVE); URINE KETONE NEGATIVE (NEGATIVE); URINE LEUK ESTERASE 1+ (NEGATIVE); URINE NITRITE NEGATIVE (NEGATIVE); URINE PROTEIN 1+ (NEGATIVE); URINE RBC 2684 /hpf (0-4); URINE WBC 7 /hpf (0-5)
--- NOTE | 2018-08-19 21:27 | PDOC ---
Documentation entered by Darya Solis SCRIBE, acting as scribe for Axel Robertson MD. Axel Robertson MD: This documentation has been prepared by the Will man Sammi, SCRIBE, under my direction and personally reviewed by me in its entirety. I confirm that the documentation accurately reflects all work, treatment, procedures, and medical decision making performed by me. History of Present Illness - General Chief Complaint: Vaginal Bleeding Stated Complaint: VAGINAL BLEEDING Time Seen by Provider: 08/19/18 17:54 History Source: Patient Exam Limitations: No Limitations - History of Present Illness Initial Comments: 08/19/18 20:30 The patient is a 32 year old female, with a significant PMH of PCOS, who presents to the emergency department for evaluation of 1 day of heavy bleeding, 2 weeks of nausea and breast tenderness. She states she woke up this morning around 5pm and noticed blood when going to the bathroom. She also notes mild abdominal cramping. LMP February, patient has PCOS and has irregular menstrual periods. The patient states she took a test on Wednesday and which both came back positive. She denies any pain at this time. The patient denies chest pain, shortness of breath, headache and dizziness. Denies fever, chills, vomiting, diarrhea and constipation. Denies dysuria, frequency, urgency and hematuria. Allergies: Cephalexin, penicillin PCP: Renetta Past History - Past Medical History Allergies/Adverse Reactions: Allergies Allergy/AdvReac Type Severity Reaction Status Date / Time cephalexin monohydrate Allergy Mild Rash Verified 08/19/18 17:55 [From Keflex] Penicillins Allergy Mild Rash Verified 08/19/18 17:55 Home Medications: Ambulatory Orders metFORMIN HCL [Metformin HCl ER] 500 mg PO DAILY 02/22/18 Anemia: Yes Asthma: No (asthma as a child) Cancer: No Cardiac Disorders: No CVA: No COPD: No CHF: No DVT: No Dementia: No Diabetes: No GI Disorders: No Disorders: No HTN: No Hypercholesterolemia: No Liver Disease: No Seizures: No Thyroid Disease: No Other medical history: PCOS - Surgical History Abdominal Surgery: No Appendectomy: Yes Cardiac Surgery: No Cholecystectomy: No Lung Surgery: No Neurologic Surgery: No Orthopedic Surgery: No - Reproductive History (#): 0 Para: 0 Cervical CA: No Dysfunctional Uterine Bleeding: No Ectopic : No Endometrial CA: No Polycystic Ovaries: Yes Therapeutic (s) & number: No Tubal Ligation: No Spontaneous : 0 - Immunization History Immunization Up to Date: No - Suicide/Smoking/Psychosocial Hx Smoking Status: Yes Smoking History: Never smoked Have you smoked in the past 12 months: No Number of Cigarettes Smoked Daily: 3 If you are a former smoker, when did you quit?: october 2016 Cigars Per Day: 0 'Breaking Loose' booklet given: 09/12/17 Hx Alcohol Use: No Drug/Substance Use Hx: No Substance Use Type: None Hx Substance Use Treatment: No Review of Systems - Review of Systems Comments:: 08/19/18 20:32 GENERAL/CONSTITUTIONAL: No fever or chills. No weakness. HEAD, EYES, EARS, NOSE AND THROAT: No change in vision. No ear pain or discharge. No sore throat. CARDIOVASCULAR: No chest pain or shortness of breath. RESPIRATORY: No cough, wheezing, or hemoptysis. GASTROINTESTINAL: (+)nausea. Novomiting, diarrhea or constipation. GENITOURINARY: No dysuria, frequency, or change in urination. MUSCULOSKELETAL: (+)Breast tenderness. No joint or muscle swelling. No neck or back pain. VAGINAL: (+)heavy bleeding SKIN: No rash NEUROLOGIC: No headache, vertigo, loss of consciousness, or change in strength/ sensation. *Physical Exam - Vital Signs Last Vital Signs Temp Pulse Resp BP Pulse Ox 98.3 F 75 16 102/56 L 98 08/19/18 17:55 08/19/18 17:55 08/19/18 17:55 08/19/18 17:55 08/19/18 17:55 - Physical Exam Comments: 08/19/18 20:32 GENERAL: Awake, alert, and fully oriented, in no acute distress HEAD: No signs of trauma NECK: Normal ROM. Supple. LUNGS: Breath sounds equal, clear to auscultation bilaterally. No wheezes, and no crackles HEART: Regular rate and rhythm, normal S1 and S2, no murmurs, rubs or gallops ABDOMEN: Soft, nontender. No guarding, no rebound. VAGINAL: (+) Cervix os closed, blood in vaginal vault no clots, no CMT, no adnexal tenderness EXTREMITIES: Normal range of motion, no edema. No clubbing or cyanosis. No cords, erythema, or tenderness NEUROLOGICAL: Cranial nerves II through XII grossly intact. Normal speech. ED Treatment Course - LABORATORY CBC & Chemistry Diagram: 08/19/18 18:59 - ADDITIONAL ORDERS Additional order review: Laboratory Results 08/19/18 18:59 PT with INR 13.00 INR 1.10 H 08/19/18 18:59 RBC 4.98 MCV 78.4 L MCHC 32.6 RDW 16.6 H MPV 8.4 Neutrophils % 39.5 L Lymphocytes % 50.5 H Monocytes % 6.4 Eosinophils % 2.8 Basophils % 0.8 Medical Decision Making - Medical Decision Making 08/19/18 21:38 A portion of this note was documented by scribe services under my direction. I have reviewed the details of the note, within reason, and agree with the documentation with the following case summary and management plan written by me. Patient treated in the ED. Nursing notes are reviewed and incorporated into the medical decision-making. Vital signs reviewed. Peripheral IV access obtained by the nurse, laboratory studies are drawn and sent, reviewed and interpreted by myself. Vital Signs Temp Pulse Resp BP Pulse Ox 98.4 F 67 18 120/59 L 98 08/19/18 20:05 08/19/18 20:05 08/19/18 20:05 08/19/18 20:05 08/19/18 20:05 32-year-old female with history of polycystic ovarian syndrome on metformin, to be 1001 presents with vaginal bleeding. Patient reports that her periods are typically irregular. Yesterday, patient to the urine test which demonstrated positive . Today, patient noted significant passing of vaginal bleeding including clots. Reported the bleeding had improved. Denies abdominal pain. No fevers or chills. Denies dysuria. Differential includes ectopic versus miscarriage. We'll obtain labs, ultrasound, type and screen and reassess. Pelvic exam demonstrates no xavier hemorrhaging. Otherwise, patient appears comfortable. 08/19/18 23:46 CBC, BMP 08/19/18 18:59 CMP Beta HCG, Quant < 1.0 mIU/ml 08/19/18 22:12 Blood type AB+ Urine Test Results Urine Color [place] 08/19/18 19:07 Urine Appearance Clear 08/19/18 19:07 Urine pH 5.0 (5.0-8.0) 08/19/18 19:07 Ur Specific [place] 1.026 (1.010-1.035) 08/19/18 19:07 Urine Protein 1+ (NEGATIVE) H 08/19/18 19:07 Urine Glucose (UA) Negative (NEGATIVE) 08/19/18 19:07 Urine Ketones Negative (NEGATIVE) 08/19/18 19:07 Urine Blood 3+ (NEGATIVE) H 08/19/18 19:07 Urine Nitrite Negative (NEGATIVE) 08/19/18 19:07 Urine Bilirubin Negative (NEGATIVE) 08/19/18 19:07 Ur Leukocyte Esterase 1+ (NEGATIVE) H 08/19/18 19:07 The ultrasound demonstrates no obvious intrauterine . I suspect patient likely had a complete miscarriage. I had given the results and the findings to the patient including the blood work. I did however advised patient to return to the ER 2 days for confirmation including repeat beta hCG and ultrasound. (Also to rule out ectopic ) Patient states that she would do so. At this time, supportive care. Return precautions given including severe bleeding. Patient verbalizes understand agrees with plan. *DC/Admit/Observation/Transfer Diagnosis at time of Disposition: Miscarriage - Discharge Dispostion Disposition: HOME Condition at time of disposition: Stable Decision to Admit order: No - Referrals Referrals: Bill Jackson MD [Primary Care Provider] - - Patient Instructions Printed Discharge Instructions: DI for Miscarriage Additional Instructions: Your ultrasound demonstrates no viable and your beta HCG is undetectable. You have likely miscarriage. However, to confirm this, you should return to your [facility] or to the ER in 2 days for repeat blood work and ultrasound. The vaginal bleeding may persist for the next several days and eventually resolve. If the bleeding worsens, please return to the ER sooner. You may take 650 mg tyelnol every 4 hours as needed for pain. - Post Discharge Activity
[2018-08-20] VITALS: BP 128/89; PULSE 83
== END 2018-08-20 00:04 | disposition home or self-care (01) ==
LOC: JER 17:51
DX: O26.899 Other specified pregnancy related conditions, unspecified trimester (principal); O03.9 Complete or unspecified spontaneous abortion without complication; O99.280 Endocrine, nutritional and metabolic diseases complicating pregnancy, unspecified trimester; E28.2 Polycystic ovarian syndrome; Z3A.00 Weeks of gestation of pregnancy not specified
CPT/HCPCS: 36415; 76817-TC; 81003; 84702; 84703; 85025; 85610; 86850; 86900; 86901; 99283-25

== ENCOUNTER 2021-02-03 10:30 | Emergency (ER) | payer OTHER ==
[2021-02-03 10:53] VITALS: BMI 47.9
[2021-02-03] MEDS ORDERED: ACETAMINOPHEN 500 MG TABLET (FP) PO ONE (11:32)
[2021-02-03] MEDS ORDERED: ACETAMINOPHEN 500 MG TABLET (FP) ONE ×2 (11:34)
[2021-02-03] MEDS ORDERED: LIDOCAINE 5% TOPICAL PATCH TP ONE (11:45)
[2021-02-03] MEDS ORDERED: LIDOCAINE 5% TOPICAL PATCH ONE (11:55)
[2021-02-03] MEDS ORDERED: morphine CARPU-JECT 4 MG/1 ML DISP.SYRIN IM ONE (14:02)
[2021-02-03] MEDS ORDERED: morphine SULFATE 4 MG/ML VIAL ONE (14:12)
[2021-02-03 15:46] VITALS: BP 129/70; PULSE 87; TEMP 98.6
[2021-02-03] MEDS ORDERED: LIDOCAINE PATCH REMOVAL MC ONE (22:00)
== END 2021-02-03 15:46 | disposition home or self-care (01) ==
LOC: JERFT 10:30
PROC: 3E023NZ Introduction of Analgesics, Hypnotics, Sedatives into Muscle, Percutaneous Approach (ICD-10-PCS; principal; 2021-02-03)
DX: M54.50 Low back pain, unspecified (principal)
CPT/HCPCS: 99285-25

== ENCOUNTER 2021-02-04 08:43 | Emergency (ER) | payer OTHER ==
[2021-02-04 09:15] VITALS: BP 142/87; PULSE 101; TEMP 97.8; BMI 47.9
[2021-02-04] MEDS ORDERED: DEXAMETHASONE SOD PHOSPHATE 10 MG/1 ML VIAL IM ONE (11:24)
[2021-02-04] MEDS ORDERED: DEXAMETHASONE SOD PHOSPHATE 10 MG/1 ML VIAL ONE (11:30)
[2021-02-04 11:55] LABS: EPI CELLS >36 /uL (0-25.1); HYALINE CASTS 13 /uL (0-3.1); PH,URINE 5.5 (5.0-8.0); URINE APPEARANCE CLOUDY; URINE BACTERIA 3479 /uL (0-1359); URINE BILIRUBIN NEGATIVE (NEGATIVE); URINE COLOR DK YELLOW; URINE GLUCOSE (UA) NEGATIVE (NEGATIVE); URINE KETONE 1+ (NEGATIVE); URINE LEUK ESTERASE NEGATIVE (NEGATIVE); URINE NITRITE NEGATIVE (NEGATIVE); URINE PROTEIN 1+ (NEGATIVE); URINE UROBILINOGEN 0.2 mg/dL (0.2-1.0)
[2021-02-04 15:46] LABS: URINE RBC 85.7 /uL (0-23.9); URINE WBC 98.8 /uL (0-25.8)
[2021-02-04 15:53] LABS: URINE CRYSTALS 0-2 /hpf
== END 2021-02-04 12:10 | disposition home or self-care (01) ==
LOC: JER 08:43
PROC: 3E023GC Introduction of Other Therapeutic Substance into Muscle, Percutaneous Approach (ICD-10-PCS; principal; 2021-02-04)
DX: M54.42 Lumbago with sciatica, left side (principal)
CPT/HCPCS: 81003; 87086; 99284-25; J1100

== ENCOUNTER 2023-04-03 13:36 | Emergency (ER) | payer OTHER ==
[2023-04-03 13:45] VITALS: BP 111/64; PULSE 94; RESP 20; TEMP 97.8; BMI 52.9
[2023-04-03 15:52] LABS: PH,URINE 5.5 (5.0-8.0); URINE APPEARANCE CLEAR; URINE BILIRUBIN NEGATIVE (NEGATIVE); URINE COLOR YELLOW; URINE GLUCOSE (UA) NEGATIVE (NEGATIVE); URINE KETONE TRACE (NEGATIVE); URINE LEUK ESTERASE NEGATIVE (NEGATIVE); URINE NITRITE NEGATIVE (NEGATIVE); URINE PROTEIN NEGATIVE (NEGATIVE)
[2023-04-03 15:54] LABS: HEMATOCRIT 35.5 % (32.4-45.2); HEMOGLOBIN 11.9 GM/dL (10.7-15.3); MCH 24.6 pg (25.7-33.7); MCHC 33.4 g/dl (32.0-36.0); MEAN CELL VOLUME 73.9 fl (80-96); MEAN PLT VOLUME 7.7 fl (7.5-11.1); PLATELET COUNT 347 10^3/uL (134-434); RBC 4.81 M/mm3 (3.60-5.2); RDW 17.5 % (11.6-15.6); WHITE BLOOD COUNT 5.6 K/mm3 (4.0-10.0)
[2023-04-03 16:17] LABS: POTASSIUM 4.1 mmol/L (3.5-5.1)
[2023-04-03 16:20] LABS: ALBUMIN 3.6 g/dl (3.4-5.0); BLOOD UREA NITROGEN 15.2 mg/dL (7-18); CALCIUM 9.2 mg/dL (8.5-10.1)
[2023-04-03 16:23] LABS: CREATININE 0.8 mg/dL (0.55-1.3)
[2023-04-03 16:25] LABS: BILIRUBIN,TOTAL 0.4 mg/dL (0.2-1); TOT PROT 7.9 g/dl (6.4-8.2)
[2023-04-03] MEDS: ONDANSETRON 4 MG/2 ML VIAL IVPB ONE (21:00)
== END 2023-04-03 22:08 | disposition home or self-care (01) ==
LOC: JER 13:36
DX: R10.33 Periumbilical pain (principal); K43.9 Ventral hernia without obstruction or gangrene
CPT/HCPCS: 36415; 74177-TC; 80053; 81003; 83605; 83690; 84703; 85027; 87086; 99285-25; Q9967

== ENCOUNTER 2024-02-24 13:23 | Emergency (ER) | payer OTHER ==
[2024-02-24 13:42] VITALS: BP 140/86; PULSE 107; RESP 18; TEMP 99; BMI 47.2
[2024-02-24] MEDS ORDERED: guaiFENesin/D-METHORPHAN HB 10 ML UNIT-DOSE CUPS ONE (13:54)
[2024-02-24] MEDS ORDERED: ALBUTEROL SO4 2.5/IPRATROPIUM 0.5 INH SOL 3 ML VIAL.NEB. NEB ONE (13:54)
[2024-02-24] MEDS: ALBUTEROL SO4 2.5/IPRATROPIUM 0.5 INH SOL 3 ML VIAL.NEB. NEB ONE (13:57)
[2024-02-24] MEDS: guaiFENesin/D-METHORPHAN HB 10 ML UNIT-DOSE CUPS PO ONE (13:57)
== END 2024-02-24 15:39 | disposition home or self-care (01) ==
LOC: JER 13:23 → JERFT 13:23
PROC: 3E0F7GC Introduction of Other Therapeutic Substance into Respiratory Tract, Via Natural or Artificial Opening (ICD-10-PCS; principal; 2024-02-24)
DX: J40 Bronchitis, not specified as acute or chronic (principal); R05.9 Cough, unspecified
CPT/HCPCS: 71046-TC-FY; 99283-25

== ENCOUNTER 2024-06-15 07:38 | Day surgery (SDC) | payer OTHER ==
[2024-06-07 14:49] VITALS: BMI 53.2
[2024-06-15] MEDS ORDERED: LIDOCAINE VISCOUS 2% ORAL/TOP 15 ML UNIT-DOSE CUP ONE (09:17)
[2024-06-15] MEDS ORDERED: MIDAZOLAM HCL 2 MG/2 ML SINGLE DOSE VIAL ONE ×2 (09:39→09:51)
[2024-06-15 10:24] VITALS: TEMP 97.2
[2024-06-15 10:39] VITALS: RESP 18
[2024-06-15 11:21] VITALS: BP 113/57; PULSE 80
== END 2024-06-15 11:00 | disposition home or self-care (01) ==
LOC: JASU-ENDO 07:38
PROVIDERS: ATTEND Internal Medicine Gastroenterology
PROC: 0DB68ZX Excision of Stomach, Via Natural or Artificial Opening Endoscopic, Diagnostic (ICD-10-PCS; principal; 2024-06-15 09:45)
DX: Z01.818 Encounter for other preprocedural examination (principal); E66.01 Morbid (severe) obesity due to excess calories; Z68.43 Body mass index [BMI] 50.0-59.9, adult
CPT/HCPCS: 81025; 88305-TC; 88342-TC